=== PATIENT | female | born 1935 | race Caucasian/White ===

== ENCOUNTER 2017-01-02 11:03 | Emergency (ER) | payer MEDICARE, OTHER ==
--- NOTE | ~2017-01-02 | ER ---
PATIENT'S NAME: JOHN VILLALPANDO [facility] AGE: 81 Y [address] ROOM: [place] [address] LOCATION: [facility] ADMIT DATE: 01/02/2017 ER/Outpatient Report DISCHARGE DATE: 01/02/2017 FAMILY PHYSICIAN: Rowdy Petty PA-C ATTENDING PHYSICIAN: Tonio Brizuela Time of Arrival: Time of Evaluation: Admission date and time documented in the medical record. I saw the patient at 1130 hours. CHIEF COMPLAINT: Generalized weakness, increasing hip pain. HISTORY OF PRESENT ILLNESS: This patient is an 81-year-old female, who is brought to the emergency room by private vehicle by family for evaluation. She has had increasing weakness over the past 36 to 48 hours. Has an increased bilateral hip pain with ambulation. Has been taking tramadol for pain. She has taken about 1 or at the max 2 a day. Recently, had a urinary tract infection. She was placed on Levaquin, note might have interfered with her Coumadin and her INR went up to a 9. She started to have hemorrhaging from her bladder. Her Coumadin was stopped, and last prothrombin time checked was 2 days ago at 5.2. 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 She is undergoing chemotherapy weekly on Tuesdays. She had a hemoglobin 2 days ago of 9.7. She states that her urine has cleared as of this morning. Prior to that, it was bloodied. Denies any chest pain, shortness of breath. Does not have any abdominal pain, nausea, vomiting, or diarrhea. No urinary symptomatology. Little lightheaded, dizzy at times, but no syncope or near syncope. No fall or trauma. No recent colds, coughs, flus, fever, chills, or sweats other than the urinary tract infection. No headache, eyes, ears, nose, throat, neck, or spine pain. No history of neurological changes, psychiatric issues, or endocrine problems. HOME MEDICATIONS: See attached medication list. ALLERGIES: SULFA. SOCIAL HISTORY: Nonsmoker and nondrinker. SIGNIFICANT PAST MEDICAL HISTORY: 1. Anemia of chronic disease. 2. Hypertension. PATIENT'S NAME: JOHN VILLALPANDO [facility] AGE: 81 Y [address] ROOM: [place], [place] [address] LOCATION: [facility] ADMIT DATE: 01/02/2017 ER/Outpatient Report DISCHARGE DATE: 01/02/2017 FAMILY PHYSICIAN: Rowdy Petty PA-C ATTENDING PHYSICIAN: Tonio Brizuela 3. Peritoneal carcinomatosis. 4. Ovarian cancer. 5. Pulmonary embolism. 6. Long-term anticoagulation with Coumadin. 7. Malignant pleural effusion. 8. Malignant ascites. PAST SURGICAL HISTORY: Operations: 1. Abdominal paracentesis. 2. Blood transfusions. REVIEW OF SYSTEMS: All systems reviewed by me are negative with the exception of those discussed in the History of the Present Illness. PHYSICAL EXAMINATION: VITAL SIGNS: Temperature 98.3, tympanic; pulse 100; respirations 22; blood pressure 118/58; and O2 saturation on room air is 95%. HEENT: Head; normocephalic. Eyes; extraocular muscles intact. PERRL. Ears, Nose, Throat: Clear. Mucous membranes a little dry. NECK: No nuchal rigidity. No thyromegaly or cervical lymphadenopathy. No tenderness. SPINE: Negative. LUNGS: Clear. No rales, rhonchi, or wheezes. HEART: Regular. Pulses are palpable. ABDOMEN: Soft, nontender. Active bowel tones. No organomegaly or abnormal mass palpable. No CVA tenderness. EXTREMITIES: Has some peripheral edema, pitting. No cyanosis. No deformity. NEUROLOGIC: Neurovascularly intact. SKIN: Clear. No skin eruptions or rash. LABORATORY DATA: Urine showed 0 to 2 whites, full field reds, negative bacteria, and negative epithelial cells. Negative nitrites on dipstick. White count was 3900, 80 segs, 7 bands, 10 lymphs, 2 monos, and 1 eosinophil. Hemoglobin is 8.0 with a hematocrit of 24.8, and platelet count was 360,000. PTT was 44, prothrombin time was 16.5, with an INR of 1.56. CRP was 9.8, proBNP was 151. CMS was normal except for a low calcium of 8. Elevated BUN of 27. CPK was 37. Point of care cardiac enzymes were normal. Lactate was 0.9. Procalcitonin was 0.15. Clot tube drawn. EMERGENCY DEPARTMENT COURSE: I did give the patient 1 L normal saline IV in the emergency room. PATIENT'S NAME: JOHN VILLALPANDO [facility] AGE: 81 Y [address] ROOM: [place] [address] LOCATION: [facility] ADMIT DATE: 01/02/2017 ER/Outpatient Report DISCHARGE DATE: 01/02/2017 FAMILY PHYSICIAN: Rowdy Petty PA-C ATTENDING PHYSICIAN: Tonio Brizuela IMPRESSION: 1. Anemia of chronic disease with a hemoglobin of 8.0. 2. Hematuria secondary to a recent elevation of her prothrombin time. She is on long-term coagulation with Coumadin. Has been off Coumadin for the past 4 days. The patient was being treated for urinary tract infection with Levaquin and probably increased her prothrombin time with Coumadin therapy. 3. History of ovarian cancer with peritoneal carcinomatosis. She has a history of malignant ascites, malignant pleural effusions. Undergoing chemotherapy once a week. 4. History of hypertension. 5. History of pulmonary embolism for which she was on anticoagulation. PLAN: I did give the patient 1 L normal saline fluids here in the emergency department. Dismissed home. Observation. Activity as tolerated. Continue present home medications and care. Follow up with Dr. Aly on Wednesday for chemotherapy. The patient needs to have a recheck of her prothrombin time and her hemoglobin and hematocrit. She will probably need to be restarted on Coumadin at that time. She will get her chemotherapy at that time. I did talk to the daughter at length and she is possibly going to call Dr. Aly on Wednesday to see if she needs to have her rechecked earlier, otherwise, just to follow up on Wednesday. MD ZAY JIMENES/modl /[id number] d: 01/02/171922 t: 01/03/17609, OUTPATIENT REPORT
[~2017-01-02 11:03] MED LIST: FEOSOL325 MG PO; LOSARTAN-HCTZ1 EACH PO; LOVENOX 12120 MG/0.8 SUB-Q; PRILOSEC20 MG PO; REFRESH PLUS1 EACH OPHTH; TYLENOL EXTRA500 MG PO; XARELTO20 MG PO; ZOFRAN4 MG PO; ZOLOFT50 MG PO
[2017-01-02 12:23] LABS: HEMATOCRIT 24.8 % (30.0-46.0); MCH 32.1 pg (27.0-34.0); MCHC 32.3 gm/dL (32.0-36.5); MCV 99.6 fl (83.0-98.0); MPV 9.6 fl (9.4-12.4); PLATELET COUNT 360 K/uL (150-450); RBC 2.49 M/uL (3.00-5.00); RDW-CV 17.8 % (11.9-14.6); WBC 3.9 K/uL (4.0-11.0)
[2017-01-02 12:36] LABS: INR - (THERAPEUTIC) 1.56 (0.92-1.07); PROTIME 16.5 SECONDS (9.8-11.4); PTT 44 SECONDS (25-32)
[2017-01-02 12:45] LABS: ALBUMIN 2.5 gm/dL (3.5-5.0); ALK PHOS 100 IU/L (33-138); ALT 20 IU/L (12-78); ANION GAP 11.1 (10.0-19.0); AST 25 IU/L (10-40); BLOOD UREA NITROGEN 27 mg/dL (6-24); CHLORIDE 107 mMol/L (96-110); CO2 25 mMol/L (22-32); CPK 37 IU/L (21-215); CREATININE 0.9 mg/dL (0.5-1.1); ESTIMATED GFR (MDRD EQUATION) 60; POTASSIUM 4.1 mMol/L (3.7-5.1); SODIUM 139 mMol/L (135-145); TOTAL BILIRUBIN 0.8 mg/dL (0.0-1.5); TOTAL PROTEIN 6.4 g/dL (6.0-8.4)
[2017-01-02 12:51] LABS: ABSOLUTE NEUTROPHIL CT (ANC) 3.4 K/uL (1.8-7.8); BANDED NEUTROPHIL # 0.3 K/uL (0.0-0.1); BANDED NEUTROPHILS % 7 %; LYMPHOCYTE # 0.4 K/uL (0.8-4.0); LYMPHOCYTE % 10 %; MONOCYTE # 0.1 K/uL (0.0-1.0); SEGMENTED NEUTROPHIL # 3.1 K/uL (1.8-7.8); SEGMENTED NEUTROPHIL % 80 %
[2017-01-02 13:10] LABS: BILIRUBIN URINE NEGATIVE (NEGATIVE); BLOOD URINE 250 /UL (NEGATIVE); GLUCOSE URINE 50 mg/dL (NEGATIVE); KETONE URINE 5 mg/dL (NEGATIVE); LEUKOCYTES URINE 25 /UL (NEGATIVE); NITRITE URINE NEGATIVE (NEGATIVE); PROTEIN URINE 100 mg/dL (NEGATIVE); TURBIDITY URINE 1+ (CLEAR); UROBILINOGEN URINE NORMAL (NORMAL)
[2017-01-02 13:13] LABS: COLOR URINE OTHER (YELLOW)
[2017-01-02 13:16] LABS: EPITHELIAL URINE NEGATIVE #/HPF (NEGATIVE); RBC URINE FULL FIELD #/HPF (NEGATIVE); WBC URINE 0-2 #/HPF (NEGATIVE)
[2017-01-02 13:17] LABS: BACTERIA URINE NEGATIVE (NEGATIVE)
== END 2017-01-02 14:56 | disposition disaster alternative care site (69) ==
LOC: GMED 11:03
PROVIDERS: Emergency Medicine
DX: D63.8 Anemia in other chronic diseases classified elsewhere (principal); R79.1 Abnormal coagulation profile; R31.9 Hematuria, unspecified; I10 Essential (primary) hypertension; C56.9 Malignant neoplasm of unspecified ovary; I26.99 Other pulmonary embolism without acute cor pulmonale; C78.6 Secondary malignant neoplasm of retroperitoneum and peritoneum; Z79.01 Long term (current) use of anticoagulants; Z79.899 Other long term (current) drug therapy; Z88.2 Allergy status to sulfonamides
CPT/HCPCS: J7030

== ENCOUNTER → 2017-01-05 | Outpatient (CLI) | payer MEDICARE, OTHER ==
[~2017-01-05] MED LIST changes: +AYR SALINE NA14.1 GM NOSE; +COLACE100 MG; +COLACE100 MG PO; +COUMADIN **IA7.5 MG PO; +COUMADIN**IA 06/5 MG PO; +DILAUDID 4MG4 MG PO; +DRISDOL 5050000 UNIT PO; +DULCOLAX10 MG R; +DURAGESIC 25MC25 MCG TOP; +DURAGESIC 75MC75 MCG TRANS; +DURAGESIC1 EAC1 TOP; +GLYCOLAX527 GM PO; +LIDOCAINE1 EACH TRANS; +MAG119MX PO; +MILK OF MA400 MG/5 M PO; +MIRALAX PO527 GM/BOT PO; +NORCO 5-325 TA1 EACH PO; +ZOFRAN ODT8 MG SL; +ZOFRAN4 MG SL
== END | disposition disaster alternative care site (69) ==
LOC: GRAD 13:51
DX: C56.9 Malignant neoplasm of unspecified ovary (principal); C20 Malignant neoplasm of rectum; C48.2 Malignant neoplasm of peritoneum, unspecified; D64.81 Anemia due to antineoplastic chemotherapy; N30.00 Acute cystitis without hematuria; Z92.21 Personal history of antineoplastic chemotherapy; Z79.01 Long term (current) use of anticoagulants; M84.48XA Pathological fracture, other site, initial encounter for fracture; R18.8 Other ascites

== ENCOUNTER 2017-01-11 15:20 | Inpatient (IN) | payer MEDICARE, OTHER ==
[~2017-01-11] VITALS: Ht 172.7 cm; Wt 78.6 kg
--- NOTE | ~2017-01-11 | OR ---
PATIENT'S NAME: JOHN VILLALPANDO [facility] AGE: 81 Y [address] ROOM: [place] [address] [place] [facility] ADMIT DATE: 01/11/2017 OR/Procedure Report DISCHARGE DATE: FAMILY PHYSICIAN: Rowdy Petty PA-C ATTENDING PHYSICIAN: THERESE COLEY SURGEON: Freda Morales MD DRAGGER: None. DATE OF PROCEDURE: 01/19/2017 PREOPERATIVE DIAGNOSES: 1. Gross hematuria. 2. Mucosal bladder lesion. POSTOPERATIVE DIAGNOSES: 1. Gross hematuria. 2. Mucosal bladder lesion. OPERATIVE PROCEDURE: Cystoureteroscopy with bladder biopsy and fulguration. ANESTHESIA ADMINISTERED: Monitored anesthesia care. INDICATIONS FOR PROCEDURE: The patient is a pleasant 81-year-old female with history of omental carcinomatosis, who had recent difficulty with gross hematuria. On cystoscopy, she was noted to have several mucosal erythematous lesions along her posterior bladder wall. The patient was explained the risks, benefits, indications, and alternatives to above procedure and wished to proceed and consented freely. DESCRIPTION OF OPERATION: The patient was brought back to the operating room where she was placed on the OR table in the supine position. A surgical time- out was called where the patient identification, surgical site, and procedure was then verified. We also did verify that the patient received an IV cephalosporin antibiotic within an hour of beginning the procedure. The patient underwent successful administration of monitored anesthesia care. The patient was then moved and placed in a low lithotomy position where she was then prepped and draped in the usual sterile fashion. I began by advancing the rigid cystoscope easily into the patient's urinary bladder. Full pancystoscopy was performed. Her ureteral orifices were noted to be in their orthotopic location. There was no evidence of any bladder stones, diverticula, or trabeculation. She did have several mucosal lesions along her posterior bladder wall at least two, one located directly posterior at midline and one just to the left of midline. The cold cup biopsy forceps were used to sample these areas, which were sent for pathologic analysis. I then used the Bugbee electrocautery to widely fulgurate these areas along her posterior bladder wall. Each area measured approximately 2 cm in size. The patient did PATIENT'S NAME: ROBBIN [facility]AL[facility]OST. [facility] AGE: 81 Y [address] ROOM: [place] [address] LOCATION: [facility] ADMIT DATE: 01/11/2017 OR/Procedure Report DISCHARGE DATE: FAMILY PHYSICIAN: Rowdy Petty PA-C ATTENDING PHYSICIAN: THERESE COLEY tolerate the procedure well. I then emptied her bladder. Of note, there was no evidence of any bladder perforation. The patient was then taken out of the lithotomy position where she was then awoken from monitored anesthesia care, transferred to recovery bed, and transported to the recovery room in good condition. COMPLICATIONS: None. DRAINS: None. SPECIMENS: Bladder biopsies for pathologic analysis. ESTIMATED BLOOD LOSS: Minimal. FOLLOWUP PLAN: The patient will be admitted back to the Hospitalist Team, who is managing her pain from her recent sacral fracture. We will also closely monitor her output and we will defer to the primary team on restarting her anticoagulation. FREDA MORALES MD GP/modl /[id number] d: 01/19/17 2359 t: 01/27/17 0834, OPERATIVE SUMMARY
--- NOTE | ~2017-01-11 | CON ---
[facility]GE[facility] 81 Y [address] ROOM: [place] [address] LOCATION: [facility] [place] ADMIT DATE: 01/11/2017 Consultation DISCHARGE DATE: FAMILY PHYSICIAN: Rowdy Petty PA-C ATTENDING PHYSICIAN: THERESE COLEY DATE OF CONSULTATION: 01/12/2017 REFERRING PHYSICIAN: Marty Anguiano MD PALLIATIVE MEDICINE CONSULTATION LOCATION: Medical-Surgical Unit, Room 3205. REFERRING PROVIDER: Delroy Barboza APRN CHIEF COMPLAINT: Palliative Care referral to assist with pain management and goals of care conversation. HISTORY OF PRESENT ILLNESS: The patient is an 81-year-old female with a history of ovarian cancer with peritoneal carcinomatosis, currently undergoing chemotherapy with Dr. Aly. She was recently diagnosed with a sacral insufficiency fracture via MRI approximately 1 week ago. She had been having increasing pain at home. Had been started on a fentanyl patch 12.5 mcg as well as oral Dilaudid which still were not giving her adequate pain relief. Family reports that at home the patient got to the point where she was no longer ambulating and on the day of admission, she did not even get out of bed. Family was struggling with providing cares at home, thus the patient was brought in via ambulance for pain management. The patient reports the pain as severe in bilateral hips. She reports zero to minimal pain at rest and 10/10 with minimal activity. Palliative Care has been consulted to assist with pain management and goals of care conversation. PAST MEDICAL HISTORY: 1. Ovarian cancer, peritoneal carcinomatosis, and ascites. 2. History of pulmonary embolism in January of 2016. 3. Pulmonary hypertension. 4. Chronic GI blood loss. 5. Anemia of chronic disease. 6. Malignant pleural effusions. 7. Malignant ascites. 8. History of acute kidney injury. [facility]GE[facility] 81 Y [address] ROOM: [place] [address] LOCATION: [facility] [place] ADMIT DATE: 01/11/2017 Consultation DISCHARGE DATE: FAMILY PHYSICIAN: Rowdy Petty PA-C ATTENDING PHYSICIAN: THERESE COLEY PAST SURGICAL HISTORY: Previous Operations: 1. Port placement. 2. Paracentesis in the past. 3. D and C in the very distant past. MEDICATIONS: Please see current MAR. ALLERGIES: SULFA. SOCIAL HISTORY: The patient is and lives with her in [place]. They have seven children to provide good support but many live at a distance. No history of tobacco or alcohol use. FAMILY HISTORY: Mother had a heart disease. Her father had asthma, and she has brothers with coronary artery disease. REVIEW OF SYSTEMS: GENERAL: Denies any changes in weight. Reports appetite has been fair to good. No recent fever, chills, or night sweats. Positive for fatigue. HEENT: No change in vision or hearing. No headaches. No sinus congestion. No postnasal drip. RESPIRATORY: Denies shortness of breath or cough. CARDIOVASCULAR: No chest pain, pressure, or palpitations. Denies orthopnea. No peripheral edema. GASTROINTESTINAL: No nausea, vomiting, diarrhea, or constipation. No difficulties chewing or swallowing. GENITOURINARY: No dysuria, urinary frequency, or urgency. Does report that she has become incontinent of urine as she is unable to get up to the bathroom. MUSCULOSKELETAL: Reports a 0/10 pain right now. Resting in bed. Reports that her pain was a 3 to 4/10 with rolling to get onto the bed manrique and an 8/10, when she attempted to sit at the side of the bed this morning. She reports that her pain is in bilateral hips. Does radiate down to her knees at times. No recent falls. NEUROLOGICAL: Does have some chronic neuropathies from her chemotherapy. Denies dizziness, syncope, or seizures. INTEGUMENTARY: No rashes or open areas. HEMATOLOGICAL: No new bruising or bleeding. PSYCHIATRIC: Denies feeling depressed or anxious. Denies insomnia. PATIENT'S NAME: JOHN VILLALPANDO [facility] AGE: 81 Y [address] ROOM: [address] [address] LOCATION: [facility] [place] ADMIT DATE: 01/11/2017 Consultation DISCHARGE DATE: FAMILY PHYSICIAN: Rowdy Petty PA-C ATTENDING PHYSICIAN: THERESE COLEY PHYSICAL EXAMINATION: VITAL SIGNS: Blood pressure 134/75, heart rate 103, temperature 98.3, respirations 16, and O2 saturations 90% on room air. GENERAL: Reveals an alert and oriented elderly white female, who is lying in hospital bed. Does not appear to be in any acute distress. HEENT: Normocephalic and atraumatic. Does have alopecia. Pupils are equal and reactive to light. Sclerae not icteric. Conjunctivae are pink. Tongue and mucous membranes are moist and pink. Dentition is adequate. CARDIOVASCULAR: Heart tones regular rate and rhythm. I am not able to note any murmur. RESPIRATORY: Respirations are regular and nonlabored. Lung sounds are clear to auscultation bilaterally. I am not able to note any rales, rhonchi, or wheezes. GASTROINTESTINAL: Abdomen is soft, nontender. Bowel sounds are present. GENITOURINARY: Acuña catheter is intact with adequate amounts of yellow urine. MUSCULOSKELETAL: No significant joint deformities. Peripheral pulses are 1+ bilaterally. There is no clubbing, cyanosis, or edema. SKIN: Warm and dry. No unusual lesions or rashes. NEUROLOGIC: Grossly intact. Mental status is unremarkable. PSYCHIATRIC: Displays appropriate mood and affect for situation. IMPRESSION AND PLAN: 1. Bilateral hip pain secondary to sacral insufficiency fracture. At home, the patient was initially started on 12.5 mcg fentanyl patch. This was increased to 25 and then on Wednesday prior to this admission, the patient's family applied a third patch hoping this would give her better pain control. Plus she was taking 2 mg of oral Dilaudid approximately every 3 to 4 hours around the clock at home and 2 tablets of [place] as needed as well. In calculating her total narcotic use over 24-hour period at home, I did recommend increasing patch to 50 mcg as discussed with Delroy Barboza APRN with the hospitalist. We will also use IV Dilaudid for acute breakthrough pain. Since admission, the patient reports her pain has been better. She has been on bed rest. We will continue to titrate fentanyl and Dilaudid as needed as we initiate therapies. 2. Code status. The patient is a DNR/DNI. She did have a POLST form which was completed during her last hospital stay. This was placed on her chart. I had a long conversation with the patient and family in regard to pain management options as well as placement options following this hospitalization. Discussed going back home with caregivers. At this point, I believe she will need 24-hour caregivers due to the amount of support she is needing for transfers versus going to a custodial facility for a while versus going back home or facility with Hospice Services. Provided education PATIENT'S NAME: JOHN VILLALPANDO [facility] AGE: 81 Y [address] ROOM: [address] [address] LOCATION: [facility] [place] ADMIT DATE: 01/11/2017 Consultation DISCHARGE DATE: FAMILY PHYSICIAN: Rowdy Petty PA-C ATTENDING PHYSICIAN: THERESE COLEY to family on Home Health Care versus Hospice Services. Now that the patient has been hospitalized, the patient's family is thinking that a skilled stay at a [facility] will be best for now with the goal of trying to return back home. The patient reports that her chemotherapy will be put on hold. She has not decided if she wants to continue or not, but we will at least put it on hold until her pain is managed and her fracture has had time to heal. At this point, patient reports that her goal is for pain management. To eventually go back home though she understands that she most likely would benefit from a custodial facility stay first. Answered multiple family questions to their satisfaction. The patient and family denied any other fears or concerns. No spiritual needs. A total of 70 minutes were spent with this family, greater than 50% of this time was spent providing education and counseling. Thank you for allowing me to assist the patient and family. JEANA BYERS NP FOR MD JOSE ALBERTO CHIN/modl /[id number] CC: Delroy Barboza APRN, APRN d: 01/15/17 2228 t: 02/02/17 1350, CONSULTATION REPORT
--- NOTE | ~2017-01-11 | CON ---
PATIENT'S NAME: JOHN VILLALPANDO [place] AGE: 81 Y [address] ROOM: [address] [address] LOCATION: [facility] [place] ADMIT DATE: 01/11/2017 Consultation DISCHARGE DATE: FAMILY PHYSICIAN: Rowdy Petty PA-C ATTENDING PHYSICIAN: THERESE ANDRE REFERRING PHYSICIAN: Marty Anguiano MD Consult for Dr. Therese Andre, hospitalist. HISTORY OF PRESENT ILLNESS: This pleasant 81-year-old lady was admitted on 01/11/2017 with inability to walk, and was diagnosed with sacral insufficiency fracture on MRI. She is with marked severe pain if she stands and/or moves, and cannot ambulate. She has previous history of ovarian cancer with peritoneal carcinomatosis, and currently, she is on chemotherapy. Also, has history of bilateral pulmonary embolism. She denied any trauma. She is otherwise okay. No abdominal pain. Her ability to swallow is good. Bowel is slightly constipated; however, bladder is with some leaking issues, and this is with a Acuña catheter. She is feeling numbness in bilateral upper extremities especially in hands, and to some extent bilateral lower extremities too after she has been on chemotherapy. PHYSICAL EXAMINATION: GENERAL: At the present time, she is alert and oriented x3. VITAL SIGNS: Blood pressure was 140/73, temperature was 98.5, pulse was 84, and respiration rate was 18. She is 5 feet 8 inches tall and weighs 78.4 kg. NEUROLOGICAL: She can comprehend, and express without difficulty. Normocephalic. Cranial nerves II through XII are within normal limits. CHEST: Clear clinically. HEART: Regular sinus rhythm. ABDOMEN: Soft. EXTREMITIES: She can move bilateral upper and lower extremities. Muscle strength in bilateral upper extremity is about 4- to 4/5 with numbness as I mentioned in both hands post chemotherapy. Bilateral lower extremity muscle strength is about 3+ maybe to 4, and with effort, she gets markedly unable to move because of pain. Deep tendons are 1+ throughout. Babinski is equivocal. MEDICATIONS: She is on the following medications, PATIENT'S NAME: JOHN VILLALPADNO [place] AGE: 81 Y [address] ROOM: [address] [address] LOCATION: [facility] [place] ADMIT DATE: 01/11/2017 Consultation DISCHARGE DATE: FAMILY PHYSICIAN: Rowdy Petty PA-C ATTENDING PHYSICIAN: THERESE ANDRE 1. Coumadin. 2. Ventolin. 3. Epogen. 4. Colace. 5. Theragran. 6. [place] [employer] nasal spray. 7. Zoloft. 8. Zofran. 9. Dilaudid. 10. [place]. 11. Tylenol. 12. Lovenox. 13. Mouthwash. ASSESSMENT AND PLAN: We will start her on PT/OT. We will gradually increase her from active assistive to active range of motion in bilateral lower extremity. We will proceed with standard methodology of transfers and standing, and gradually improve her. OT will do activities of daily living and self-care. I will ask Dr. Feroz Anguiano, Orthopedic surgeon to see her and advise. We will take her to Rehab if she is stable and can tolerate intensive rehab down the line. At the present time, we have a full unit. Thank you for this referral. I did discuss all of the above with her. She verbalized understanding and agreement. GLENNY CRUZ MD WMS/modl /[id number] d: 01/13/177 t: 01/14/17 0720, CONSULTATION REPORT
--- NOTE | ~2017-01-11 | CON ---
PATIENT'S NAME: JOHN VILLALPANDO [facility] AGE: 81 Y [address] ROOM: [place] [address] LOCATION: [facility] [place] ADMIT DATE: 01/11/2017 Consultation DISCHARGE DATE: FAMILY PHYSICIAN: Rowdy Petty PA-C ATTENDING PHYSICIAN: THERESE COLEY DATE OF CONSULTATION: 01/13/2017 REFERRING PHYSICIAN: Marty Ramos MD TIME: 7 p.m. 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 Has been treated with chemotherapy since that time. No radiation therapy. No surgery. Has been able to stay at home, but she has been a limited household ambulator. Developed insidious sacral pain perhaps 3 weeks ago. Says no trauma and no change in activity. Was receiving pain medications. Reports Mother's Day was busy at home with much company and then on Wednesday the home physical therapist attempted to aggressively mobilize her and the combination of 2 markedly increased her pain. She was brought to the hospital for increased pain. MRI performed, which showed nondisplaced bilateral sacral ala fractures most consistent with insufficiency fractures, not known to have metastatic disease to the bony skeleton in the past. Reports that she has had no treatment for her osteoporosis. Does have peripheral neuropathy. Denies any weakness. Denies back pain. Also on admission, she was found to be markedly anemic and bleeding. She received 2 units of blood. Plan to have a procedure tomorrow. When she lies in bed, there was absolutely no pain, only pain when she stands up. ALLERGIES: SULFA. MEDICATIONS: She is on Coumadin for DVTs. See list for other medicines. PAST MEDICAL HISTORY: Metastatic carcinoma, osteoporosis, pulmonary embolism, anemia of chronic disease, and hypertension. SOCIAL HISTORY: Does not smoke. No alcohol. No drug abuse. REVIEW OF SYSTEMS: PATIENT'S NAME: JOHN VILLALPANDO [facility] AGE: 81 Y [address] ROOM: [place] [address] LOCATION: [facility] [place] ADMIT DATE: 01/11/2017 Consultation DISCHARGE DATE: FAMILY PHYSICIAN: Rowdy Petty PA-C ATTENDING PHYSICIAN: THERESE COLEY As above. FAMILY MEDICAL HISTORY: Her parents lived to their 90s, only of old age. PERSONAL SOCIAL HISTORY: She enjoys playing the piano. Has not been able to do that for years. PHYSICAL EXAMINATION: GENERAL: White female, very pale, no acute distress. HEENT: Hears and sees. NECK: Nontender. Thoracic spine nontender. Lumbar spine nontender. PELVIS: Stable to vertical and AP forces. There is tenderness over the sacrum bilaterally. Hips move fully with no pain. LUNGS: Able to take in a deep breath. HEART: Pulse rate is regular. ABDOMEN: Soft. Nontender. NEUROLOGIC: Has stocking-glove neuropathy with some hyperpathia bilaterally. Motor strength 5/5 throughout. Normal tone. No calf pain. INTEGUMENT: Intact. IMAGING: MRI showed bilateral sacral ala fractures, some marrow changes, but not clearly metastatic. ASSESSMENT AND PLAN: Long talk with the patient and the family. Certainly osteoporotic with pathologic fractures, chronic disease with metastatic cancer and chemotherapy. Surgical interventions would be a last resort and certainly not indicated at this time. Would recommend bedrest until comfortable, then slowly mobilize, nonweightbearing to a chair, and then slowly begin weightbearing as tolerates. I will recheck her in a week. Certainly, she has some underlying osteoporosis as well. May benefit from some medical treatment. When the patient is mobilized, needs to avoid falls to prevent other fractures. Also, with her urologic procedure, needs to be gentle with her pelvis and not further exacerbate her symptoms. MARTY RAMOS MD DPM/modl PATIENT'S NAME: JOHN VILLALPANDO [facility] AGE: 81 Y [address] ROOM: [address] [address] LOCATION: [facility] [place] ADMIT DATE: 01/11/2017 Consultation DISCHARGE DATE: FAMILY PHYSICIAN: Rowdy Petty PA-C ATTENDING PHYSICIAN: THERESE COLEY /[id number] d: 01/14/17 0302 t: 01/14/17 1829, CONSULTATION REPORT
--- NOTE | ~2017-01-11 | DS ---
PATIENT'S NAME: JOHN VILLALPANDO [facility] AGE: 81 Y [address] ROOM: [id number] [place], [place] [address] LOCATION: [facility] [place] ADMIT DATE: 01/11/2017 Discharge Summary DISCHARGE DATE: 01/21/2017 FAMILY PHYSICIAN: Rowdy Petty PA-C ATTENDING PHYSICIAN: Valeria Andre PRINCIPAL DIAGNOSES: 1. Sacral insufficiency fracture. 2. Intractable pain. 3. Ovarian cancer with peritoneal carcinomatosis. 4. History of PE, on long-term anticoagulation. 5. Anemia of chronic disease. 6. History of urinary tract infection with urinary incontinence. 7. History of hematuria. HOSPITAL COURSE: Please reference any of the admitting data to the history and physical as dictated by Dr. Andre. Briefly, an 81-year-old female with a history of stage IV ovarian cancer, who was unable to lie with intractable lower back pain. Found to have a sacral insufficiency fracture, was admitted for pain control and further evaluation and management. Incidentally, she was also found to be subtherapeutic on her Coumadin. She was started on full-dose Lovenox 1 mg/kg twice daily. She was given increased pain control with intravenous oral and transdermal pain medicines. She was kept on bedrest. A palliative care consultation was obtained also in regard to the patient's prognosis as well as supportive cares for pain control. Over the next 24 hour, she did make some progress, but very few. Two days later, a rehab consultation was obtained and she were ordered on physical therapy and occupational therapy. Dr. Anguiano's consultation was also obtained, and he recommended a nonoperative treatment with oral analgesia and slow to mobilize from bed rest. By the next day, the patient was able to sit at edge of bed with adequate analgesia and she did make progress. Over the next 2 days, she did ambulate a little bit further, but however, took a step back with further worsening pain over the weekend. We did have to utilize IV analgesia. We increased her fentanyl patch as well as her oral Dilaudid to meet her demands and we used oral Dilaudid alternating Gunter. We also added a Lidoderm patch with fairly good relief, and by the day of discharge, the patient was moving safely enough to transition to retirement care with a plan to continue nonoperative management. Prior to admission, the patient had an episode of hematuria as an outpatient and was scheduled to undergo a cystoscopy for further evaluation and possible bladder biopsy. She also has recent history of urinary tract infection as well as urinary incontinence. In consultation with Dr. Morales, her primary urologist, she was kept on prophylactic Lovenox only in anticipation of PATIENT'S NAME: JOHN VILLALPANDO [facility] AGE: 81 Y [address] ROOM: [address] [address] LOCATION: [facility] [place] ADMIT DATE: 01/11/2017 Discharge Summary DISCHARGE DATE: 01/21/2017 FAMILY PHYSICIAN: Rowdy Petty PA-C ATTENDING PHYSICIAN: Valeria Andre A necessity of procedure. She did undergo a cystoscopy with bladder biopsy and fulguration on Saturday 01/20 without complication. She was then resumed on anticoagulation on postoperative day one without any concern or complication. She was started on Coumadin with plan to bridge with Lovenox until INR reached goal 2.0 to 3.0. Vitamin D level was also found to be low at the level of 6 and was started on high-dose replacement. As for the patient's history of stage IV ovarian cancer, peritoneal carcinomatosis, we did involve Oncology as bi consultant who helped manage this portion of the case. The patient's chemotherapy is currently on hold. We did capture CA-125 level of 325, which did show improvement. They will continue to observe her as an outpatient discharge. DVT was maintained when able with anticoagulation. The remaining of her chronic conditions were maintained with her home medicines. By day of discharge, the patient was felt stable for transition to retirement facility. CONSULTING PROVIDERS: 1. Orthopedics, Dr. Marty Anguiano. 2. Physiatry, Dr. Pérez Starr. 3. Oncology, Dr. Dow. 4. Palliative care, Caryn Sanchez APRN. LABORATORY FINDINGS: Most recent on 01/21 showed a white blood cell count of 11.2, hemoglobin of 10.8, hematocrit of 34.8, and platelet count of 424. Most recent chemistry panel on 01/20 showed a glucose 128, BUN of 9, creatinine 0.5, sodium 141, potassium 3.7, chloride 107, CO2 of 25, calcium 8.2, anion gap 12.7. GFR greater than 60. Her INR on day of discharge was 0.97 Her CRP was 6.64, procalcitonin 0.09. She did have a CA-125 level of 325. Serum protein electrophoresis showed SPETP 5.2, SPE albumin at 2.5, SPE beta low at 0.3, SPE alpha 2 at 18.0, and SPE beta 2 at 8.9, all relatively mildly elevated and was a nonspecific pattern, which could represent various chronic disease state or it could be response in inflammatory stimulus. Surgical bladder biopsy shows atypical urothelium seen in association with mucosal erosion. RADIOLOGIC REPORTS: MRI of the pelvis with and without contrast on 01/20 PATIENT'S NAME: JOHN VILLALPANDO [facility] AGE: 81 Y [address] ROOM: [place] [address] LOCATION: [facility] [place] ADMIT DATE: 01/11/2017 Discharge Summary DISCHARGE DATE: 01/21/2017 FAMILY PHYSICIAN: Rowdy Petty PA-C ATTENDING PHYSICIAN: Valeria Andre A showed an evolving sacral insufficiency fracture with no displacement and there is no new fracture. There is decreased pelvic ascites and no new abnormalities when compared to previous film. DISCHARGE MEDICATIONS: 1. Lovenox 80 mg subcutaneous twice daily until INR is greater than 2.0. 2. Colace 250 mg p.o. every day. 3. Coumadin 7.5 mg p.o. 4 times weekly on Wednesday, , Wednesday, and Wednesday. 4. Fentanyl 75 mcg transdermal every 72 hours. 5. Lidoderm patch two patches to the sites of pain, hip or buttocks transdermal everyday. 6. MiraLax 17 g p.o. everyday. 7. Zoloft 50 mg p.o. every day. This is a dose change. 8. Vitamin D 50,000 units p.o. every 7 days at 0900. Last dose on 02/22/2017. 9. Coumadin 5 mg p.o. 3 times daily on Wednesday, Wednesday, and Wednesday. 10. Gunter 5/325 mg 1 tablet p.o. every 4 hours as needed. May alternate with the Dilaudid. 11. Dulcolax 10 mg per rectum every day as needed for constipation. 12. Dilaudid 4 mg p.o. every 4 hours as needed for pain. 13. Milk of magnesia 30 mL p.o. everyday as needed for constipation. 14. Zofran ODT 8 mg sublingual every 6 hours as needed. 15. Ferrous sulfate 325 mg p.o. everyday. 16. Refresh Plus eye drops one drop to each eye everyday. 17. Magic Mouthwash 5 to 10 mL p.o. every 6 hours as needed for sore mouth. 18. Nasal saline one 1 g topically everyday. DISCHARGE INSTRUCTIONS: The patient will be discharged to [facility]. She will be under the care of Dr. Banks who she visited with during her stay to establish care. We did ask for a followup within the next 3 to 4 days or as she recommends. She will require a CBC and a CMS at that followup. She will require a PT/INR tomorrow and be faxed to her primary care doctor, Dr. Banks, to manage her Coumadin level with a goal INR 2.0 to 3.0, Lovenox to be stopped after INR is greater than or equal to 2.0. She also need to follow up with her vitamin D level in five weeks and dose adjustment made according to her level. She will also need to follow up with Dr. Veronica Aly, her oncologist, in the next 2 weeks to discuss further chemo options or treatment. She should also follow up with Orthopedics, Dr. Marty Anguiano, in the next 3- 4 weeks or as needed for her back pain. Her diet should remain as tolerated. Her weightbearing status is as tolerated PATIENT'S NAME: JOHN VILLALPANDO [facility] AGE: 81 Y [address] ROOM: [address] [address] LOCATION: [facility] [place] ADMIT DATE: 01/11/2017 Discharge Summary DISCHARGE DATE: 01/21/2017 FAMILY PHYSICIAN: Rowdy Petty PA-C ATTENDING PHYSICIAN: Valeria Andre with significant fall precautions and occupational physical therapy to continue to evaluate and treat the patient. Her code status is do not resuscitate and do not intubate. Her rehab potential was fair. Discharge potential is fair. The patient and the family are well aware of her condition and prognosis was good. The line of management discussed with them during her hospitalization. All questions were answered with statements satisfaction. Total time arranging discharge greater than 30 minutes. Thank you for allowing us to participate in the care of this patient while at [facility]. TORI BAE APRN, APRN FOR MD ROSANNA ZAVALETA/oren /[id number] CC: MD Veronica Parks MD d: t: 01/22/17 0953, DISCHARGE SUMMARY
--- NOTE | ~2017-01-11 | ER ---
PATIENT'S NAME: JOHN VILLALPANDO [facility] AGE: 81 Y [address] ROOM: [place] [address] LOCATION: [facility] [place] ADMIT DATE: 01/11/2017 ER/Outpatient Report DISCHARGE DATE: FAMILY PHYSICIAN: Rowdy Petty PA-C ATTENDING PHYSICIAN: THERESE COLEY CHIEF COMPLAINT: Back pain. HISTORY OF PRESENT ILLNESS: The patient states that she is having back pain. The ambulance was called because she could not get out of bed. She arrives by ambulance from [place]. She has a known history of pelvic and ovarian cancer and is currently receiving treatment by Dr. Aly. A few days ago, she had an MRI which revealed a sacral fracture which they have been treating with escalating doses of hydrocodone, Dilaudid, and fentanyl patches. The patient feels confused and weak as well. The family notes that there is really no difference today other than her pain and inability to walk. PAST MEDICAL HISTORY: Documented in the record and reviewed by me. SOCIAL HISTORY: Documented in the record and reviewed by me. MEDICATIONS: Documented in the record and reviewed by me. ALLERGIES: DOCUMENTED IN THE RECORD AND REVIEWED BY ME. REVIEW OF SYSTEMS: All systems were reviewed and negative except as noted in the HPI. PHYSICAL EXAMINATION: VITAL SIGNS: Blood pressure 153/73, pulse of 100, respiratory rate is 20, temperature 98.4, and SpO2 is 94% on room air. Pain is 0/10 without motion. NEUROLOGIC: The patient is awake and alert. GCS is 14. Slight confusion on location. She follows commands in all extremities. The strength in the bilateral lower extremities is 4+/5 on the right, 4/5 on the left in all muscle groups. The patient is without other significant asymmetry on exam. No other focal deficits. HEENT: Normocephalic and atraumatic. Eyes are PERRL. Oropharynx is clear. NECK: Supple. Trachea is midline. CHEST: Heart is regular rate and rhythm with no obvious murmurs. PATIENT'S NAME: JOHN VILLALPANDO [facility] AGE: 81 Y [address] ROOM: [place] [address] LOCATION: [facility] [place] ADMIT DATE: 01/11/2017 ER/Outpatient Report DISCHARGE DATE: FAMILY PHYSICIAN: Rowdy Petty PA-C ATTENDING PHYSICIAN: THERESE COLEY LUNGS: Clear to auscultation bilaterally with no rhonchi, wheezes, or rales. ABDOMEN: Benign. BACK: Benign to inspection and palpation. Tenderness over the sacrum. No tenderness over the ischial spine. EXTREMITIES: Warm and well perfused with no deformities, edema, or erythema appreciated. SKIN: There is what appears to be a fungal rash over the left gluteal crease with no evidence of cellulitis. LABORATORY DATA AND IMAGING STUDIES: Labs and X-rays: No imaging was obtained today. I did review MRI from a few days ago. The patient was given no pain medication while I was on. Labs: CBC; WBC is 9.3, hemoglobin is 10.8, and platelets of 317,000. INR is 1.24. CMS without any evidence of electrolyte abnormalities. Creatinine 0.7. GFR is greater than 60. Alkaline phosphatase elevated, but no elevation of LFTs. CRP is 6.64 and procalcitonin is 0.09. IMPRESSION: Sacral fracture with intractable back pain and inability to walk. EMERGENCY DEPARTMENT COURSE: The patient was seen and evaluated as above. Based on her current history and recent imaging, I did not obtain further images. I discussed the case with Dr. Aly. The patient is clearly failing in her current situation. She will need to be admitted for better pain control, further assessment by PT, OT, and likely placement in a long term facility versus senior care pending her progression. MD DIONY DUTTON/oren /[id number] d: 01/12/17 1255 t: 01/20/1712, OUTPATIENT REPORT
--- NOTE | ~2017-01-11 | HP ---
[facility] AGE: 81 Y [address] ROOM: [address] [address] LOCATION: [facility] [place] ADMIT DATE: 01/11/2017 History & Physical DISCHARGE DATE: FAMILY PHYSICIAN: Rowdy Petty PA-C ATTENDING PHYSICIAN: THERESE COLEY DATE OF SERVICE: CHIEF COMPLAINT: Failure to ambulate. HISTORY OF PRESENT ILLNESS: An 81-year-old very pleasant lady with past medical history of ovarian carcinoma with peritoneal carcinomatosis, currently undergoing chemotherapy with Dr. Veronica Aly and a history of bilateral pulmonary embolism was diagnosed with sacral insufficiency fracture on MRI 1 week ago presented to the emergency department when the family brought her in because of failure to ambulate for past couple of days due to severe pain. She does not have pain when she does not move, but on ambulation or minimal movement, she had excruciating pain in the lower back, which is sharp and shooting, not associated with any nausea, vomiting, any lower extremity weakness, numbness, or any urinary or bowel incontinence. On further inquiry, she denied having any headache, any trouble with the eyes, any trouble swallowing, any chest pain, any palpitations, any abdominal pain, any diarrhea, but did endorse having some constipation. REVIEW OF SYSTEMS: All other systems reviewed and were negative except what is mentioned in the HPI. ALLERGIES: THE PATIENT IS ALLERGIC TO SULFA. PAST MEDICAL HISTORY: Significant for bilateral pulmonary embolism, anemia of chronic disease, ovarian cancer with peritoneal carcinomatosis, and hypertension. SOCIAL HISTORY: Never a smoker. No alcohol or drug abuse. FAMILY HISTORY: Negative for high blood pressure, diabetes, or any sort of cancer. MEDICATIONS: See the MAR. PATIENT'S NAME: JOHN VILLALPANDO [facility] AGE: 81 Y [address] ROOM: [address] [address] LOCATION: [facility] [place] ADMIT DATE: 01/11/2017 History & Physical DISCHARGE DATE: FAMILY PHYSICIAN: Rowdy Petty PA-C ATTENDING PHYSICIAN: THERESE COLEY PHYSICAL EXAMINATION: VITAL SIGNS: 132/68, 72, afebrile, 16. GENERAL: No acute distress, alert and oriented x3. HEENT: Head: Atraumatic, normocephalic. Eyes: Nonicteric. No pallor. Oropharynx: Dry mucous membranes. CARDIOVASCULAR: S1-S2. No murmurs, gallops, or rubs. LUNGS: Clear to auscultation bilaterally. ABDOMEN: Soft, nontender, nondistended. Bowel sounds are present. EXTREMITIES: No clubbing, cyanosis, or edema. MUSCULOSKELETAL: Point tenderness in the sacral area noted. PSYCH: Normal affect, mood, and speech. LABORATORY DATA: Lab work done in the emergency department today showed sodium 140, potassium 4.1, chloride 105, bicarbonate 27, anion gap of 12.5. BUN and creatinine are 15 and 0.7 respectively. CRP was 6.67. Procalcitonin was 0.09. CBC showed white count of 9.3, hemoglobin of 10.8, and platelets of 317. INR was subtherapeutic at 1.24. ASSESSMENT: 1. Sacral insufficiency fracture. 2. Ovarian cancer with peritoneal carcinomatosis. 3. Bilateral pulmonary embolism. 4. Subtherapeutic INR secondary to stopping Coumadin. 5. Anemia of chronic disease. PLAN: We are going to admit this patient to the medical surgical at this point for observation. We are going to do therapeutic INR with Lovenox at this point. She had therapeutic higher INR secondary to levofloxacin, which she took couple of weeks ago. We will provide pain control and conservative measures at this point. We will have our Orthopedics colleagues come talk to the patient if there is any benefit of sacroplasty in this scenario. The anemia of chronic disease is stable at this point and we will continue to monitor at this point. The patient is DNR/DNI. MD CARLITOS ZAVALETA/oren PATIENT'S NAME: JOHN VILLALPANDO [facility] AGE: 81 Y [address] ROOM: [place] [address] LOCATION: [facility] [place] ADMIT DATE: 01/11/2017 History & Physical DISCHARGE DATE: FAMILY PHYSICIAN: Rowdy Petty PA-C ATTENDING PHYSICIAN: THERESE COLEY /[id number] D: T: 220 HISTORY & PHYSICAL
[~2017-01-11 15:20] MED LIST changes: -AYR SALINE NA14.1 GM NOSE; -COLACE100 MG; -COLACE100 MG PO; -COUMADIN **IA7.5 MG PO; -COUMADIN**IA 06/5 MG PO; -DILAUDID 4MG4 MG PO; -DRISDOL 5050000 UNIT PO; -DULCOLAX10 MG R; -DURAGESIC 25MC25 MCG TOP; -DURAGESIC 75MC75 MCG TRANS; -DURAGESIC1 EAC1 TOP; -GLYCOLAX527 GM PO; -LIDOCAINE1 EACH TRANS; -MAG119MX PO; -MILK OF MA400 MG/5 M PO; -MIRALAX PO527 GM/BOT PO; -NORCO 5-325 TA1 EACH PO; -ZOFRAN ODT8 MG SL; -ZOFRAN4 MG SL
[2017-01-11 15:48] LABS: BASOPHIL % 0.4 %; EOSINOPHIL # 0.1 K/uL (0.0-0.5); EOSINOPHIL % 1.4 %; HEMOGLOBIN 10.8 g/dL (10.0-15.0); IMMATURE GRANULOCYTE # 0.1 K/uL (0.0-0.3); IMMATURE GRANULOCYTE % 0.5 %; LYMPHOCYTE # 1.2 K/uL (0.8-4.0); LYMPHOCYTE % 13.3 %; MCV 97.4 fl (83.0-98.0); MONOCYTE # 1.2 K/uL (0.0-1.0); MONOCYTE % 12.3 %; MPV 9.6 fl (9.4-12.4); NEUTROPHIL # (ANC) 6.7 K/uL (1.8-7.8); NEUTROPHIL % 72.1 %; NRBC % 0 /100WBC (0-0.00); PLATELET COUNT 317 K/uL (150-450); WBC 9.3 K/uL (4.0-11.0)
[2017-01-11 15:49] LABS: HEMATOCRIT 33.8 % (30.0-46.0); MCH 31.1 pg (27.0-34.0); RBC 3.47 M/uL (3.00-5.00); RDW-CV 20.5 % (11.9-14.6)
[2017-01-11 15:58] LABS: INR - (THERAPEUTIC) 1.24 (0.92-1.07); PTT 32 SECONDS (25-32)
[2017-01-11 16:06] LABS: ALBUMIN 2.3 gm/dL (3.5-5.0); ALK PHOS 177 IU/L (33-138); ALT 22 IU/L (12-78); ANION GAP 12.1 (10.0-19.0); AST 25 IU/L (10-40); BLOOD UREA NITROGEN 15 mg/dL (6-24); CALCIUM 8.1 mg/dL (8.5-10.5); CHLORIDE 105 mMol/L (96-110); CO2 27 mMol/L (22-32); CREATININE 0.7 mg/dL (0.5-1.1); ESTIMATED GFR (MDRD EQUATION) > 60; POTASSIUM 4.1 mMol/L (3.7-5.1); SODIUM 140 mMol/L (135-145); TOTAL BILIRUBIN 0.7 mg/dL (0.0-1.5); TOTAL PROTEIN 5.8 g/dL (6.0-8.4)
[2017-01-11] MEDS ORDERED: COLACE100 MG (20:17)
[2017-01-11] MEDS ORDERED: COLACE100 MG PO (20:17)
[2017-01-11] MEDS ORDERED: NORCO 5-325 TA1 EACH PO (20:19)
[2017-01-11] MEDS ORDERED: DURAGESIC 25MC25 MCG TOP ×2 (20:21→20:22)
[2017-01-11] MEDS ORDERED: ZOFRAN4 MG SL (20:23)
[2017-01-11] MEDS ORDERED: MAG119MX PO (20:24)
[2017-01-11] MEDS ORDERED: DILAUDID 4MG4 MG PO (20:25)
[2017-01-11] MEDS ORDERED: COUMADIN**IA 06/5 MG PO (20:27)
[2017-01-11] MEDS ORDERED: COUMADIN **IA7.5 MG PO (20:27)
[2017-01-11] MEDS ORDERED: AYR SALINE NA14.1 GM NOSE (20:35)
[2017-01-11] MEDS ORDERED: DURAGESIC 75MC75 MCG TRANS (20:52)
[2017-01-11] MEDS ORDERED: DURAGESIC1 EAC1 TOP (20:53)
[2017-01-11] MEDS ORDERED: ZOFRAN ODT8 MG SL (20:56)
--- NOTE | 2017-01-11 21:39 | NUR ---
81 Y/O ADMITTED WITH BILAT HIP PAIN. PT WENT TO ER ON 01/06/17 AND WAS DIAGNOSED WIHT A SACRAL INSUFFICIENCY FRACTURE. PT HAS NOT BEEN ABLE TO WALK SINCE 01/06/17 AND THE PAIN HAS GRADUALLY GOTTEN MUCH WORSE TO THE POINT THAT PT HAS BEEN IN EXCRUCIATING UNBEARABLE PAIN. PT & A&OX3. ALLERGY - SULFA = SORES IN MOUTH. MEDICAL & SURGICAL HISTORY - D&C IN 1959, POWER PORT RT CHEST. PEROTINEAL CANCER DX MAR 2014. MOST RECENT CHEMO BEGAN 10/18/16 AND HAS BEEN WEEKLY WITH PT RECEIVEING TAXOL Q WK, THEN TAXOL & AVASTIN Q 3RD WEEK. PT LAST CHEMO WAS 12/30/15, WAS TO CONTINUE UNTIL JANUARY BUT WAS STOPPED DUE TO SEVERE HIP PAIN. PT DID RECEIVE PROCRIT TUES. December PULMONARY EMBOLISMS 03/2014 & 02/17/16 & PT HAS BEEN ON COUMADIN BUT DR LIMA HAD PT STOP APPROX 5-6 DAYS AGO . UTI @ [facility], HAS BEEN ON 3 DIFFERENT ANTIBIOTICS AND HAS HAD AN INCREASE IN URINARY INCONTINANCE OVER THE PAST YR BUT [place] SINCE [facility]. DR GAYTAN HAS PT SCHEDULED FOR A CYSTOSCOPY & BIOPSY WIHT POSSIBLE CAUTERIZATION PT HAS BEEN HAVING HEMATURIA. HX OF HEMORRHOIDS, CONSTIPATION, DIARRHEA WITH CHEMO, PARASCENTESIS 01/20/16 & 02/16/16, BLOOD IN STOOL BUT UPPER & LWR GI ALL WNL, ANURIA, DYSURIA & ARF 2016, HX SKIN CANCER YRS AGO, 7 VAGINAL DEL. DEPRESSION, ANXIETY, ANEMIA. CURRENTLY HAS SORES IN MOUTH. REPORT GIVEN TO PT PRIMARY CARE NURSE MICHELLE ANDRE
--- NOTE | 2017-01-12 03:49 | NUR ---
Significant Event: Patient alert and oriented X4. States she hasn't walked for several days because of pain. Has numbness and tingling to fingers from chemo. On ETCO2 monitoring. Fent patch to L) shoulder. Scheduled tylenol and flexeril. Regular diet. Plan to access port and place maloney per family wishes this shift. Started on Lovenox and restarted on coumadin. L) hand saline lock. DNR. Follow up: Monitor pain
[2017-01-12 04:18] LABS: BASOPHIL # 0.1 K/uL (0.0-0.2); BASOPHIL % 0.5 %; EOSINOPHIL # 0.2 K/uL (0.0-0.5); EOSINOPHIL % 2.3 %; HEMOGLOBIN 10.4 g/dL (10.0-15.0); IMMATURE GRANULOCYTE # 0.1 K/uL (0.0-0.3); IMMATURE GRANULOCYTE % 0.8 %; LYMPHOCYTE # 1.2 K/uL (0.8-4.0); LYMPHOCYTE % 12.9 %; MCHC 31.5 gm/dL (32.0-36.5); MCV 98.5 fl (83.0-98.0); MONOCYTE # 1.2 K/uL (0.0-1.0); MONOCYTE % 12.8 %; MPV 9.6 fl (9.4-12.4); NEUTROPHIL # (ANC) 6.6 K/uL (1.8-7.8); NEUTROPHIL % 70.7 %; NRBC % 0 /100WBC (0-0.00); PLATELET COUNT 313 K/uL (150-450); RBC 3.35 M/uL (3.00-5.00); RDW-CV 20.4 % (11.9-14.6); WBC 9.3 K/uL (4.0-11.0)
[2017-01-12 04:20] LABS: BLOOD UREA NITROGEN 15 mg/dL (6-24); CALCIUM 8.1 mg/dL (8.5-10.5); CHLORIDE 106 mMol/L (96-110); CO2 28 mMol/L (22-32); CREATININE 0.6 mg/dL (0.5-1.1); ESTIMATED GFR (MDRD EQUATION) > 60; SODIUM 141 mMol/L (135-145)
--- NOTE | 2017-01-12 11:59 | NUR ---
Introduced self and role of care management to patient and her family. She lives with her in [place]. She states that prior to the pain issue she was able to do all her own ADL's. Her and family did assist as needed. We did discuss discharge plans. She is aware that she will most likely need a skilled stay prior to going home. She prefers [facility] in [place] and then [facility] in [place]. I placed a call to [place] at [facility] and they do have female beds available. I had to leave a message for Nicole to [facility]. I did explain to patient and family that if they chose to do a skilled stay they could not continue chemo during that stay. They state that her chemo is on hold at this time and will not be restarted until she gets back home or decides not to continue. They deny any needs at this time. Will continue to follow.
[2017-01-12 14:45] LABS: INR - (THERAPEUTIC) 1.14 (0.92-1.07)
--- NOTE | 2017-01-12 15:44 | NUR ---
Spoke with Nicole at [facility]. Referral faxed.
--- NOTE | 2017-01-12 16:08 | NUR ---
Significant Event: Patient alert and oriented. Portacath to her R) upper chest patent with good blood return. INR was 1.14 and patient received Coumadin 7.5 mg. Patient c/o bilateral hip pain with movement and was in tears when she was sitting on the edge of the bed. Returned to bed and patient had one small, golfball sized stool per bedpan. Dilaudid 0.2 mg IV given x 2 doses with the last at 1257. Fentanyl patch increased to 50 mcg. Acuña patent and drains jose colored urine with a total of 1150 ml out for the shift. New orders to dc Flexeril, patient is on bedrest and Palliative Care Consult. Patient has a red rash like area to her posterior R) thigh. Follow up: Monitor pain. Repostion q 2hrs. Start Procrit if Hgb < 10 or Hct <30.
--- NOTE | 2017-01-13 04:30 | NUR ---
Significant Event: Patient alert and oriented X4. Bedrest. Orders to work with PT/OT. Vitals stable and on room air. Port to R) chest saline locked. Nurse draw. Reguarl diet. IV diluadid X1 around 2100. Reposition often. Pneumatics on. Fent patch to R) shoulder. Rash to buttocks, WOC consulted. 2 hard BMs this shift. Follow up: May need a stool softener.
[2017-01-13 06:01] LABS: INR - (THERAPEUTIC) 1.2 (0.92-1.07); PROTIME 12.6 SECONDS (9.8-11.4)
--- NOTE | 2017-01-13 12:11 | NUR ---
SPOKE TO SULY AT THE [facility] SHE INFORMS ME THAT SHE HAS REVIEWED THE INFO THAT WAS FAXED TO HER, THEY WILL NOT BE ABLE TO ACCEPT HER AT THIS TIME THEY ARE FULL. DR. CRUZ HERE AND EVALUTAED HER HE FEELS THAT SHE WOULD BE APPROIATE BUT THE REHAB UNIT IS FULL AT THIS TIME. I SPOKE TO JOHN AND UPDATED HER THAT THE [facility] IF FULL. AND SHE WOULD LIKE FOR ME TO MAKE REFERRAL TO [facility]. I SPOKE TO SULY([phone]) SHE REPORTS THAT THEY HAVE A FEMALE BED, SHE WOULD LIKE FOR ME TO FAX INFO TO HER ([phone]). SHE WILL REVIEW IT AND GET BACK TO ME.
--- NOTE | 2017-01-13 15:38 | NUR ---
MEET WITH PATIENT HER SPOUSE AND CHILDREN NAJMA AND DAVION AT THE BEDSIDE. UPDATED THEM THAT WE CONT TO WORK ON GETTING SNF. AND THAT [facility] DOES NOT HAVE ANY BEDS. HAVE MADE REFERRAL TO [facility] AND THEY ARE OK WITH THIS. WILL CONT TO FOLLOW NEEDED.
--- NOTE | 2017-01-13 17:28 | NUR ---
Significant Event: DNR. PT AO. VSS ON RA, AFEBRILE. BEDREST, CAN USE BSC. PT/OT WORKING WITH. PORT TO R CHEST, SALINE LOCKED WITH GOOD BLOOD RETURN. DR RAMOS (ORTHO) CONSULTED TODAY. HAS NOT BEEN AROUND YET. PALIATIVE ON CASE. MILK OF MAG AND PRUNE JUICE GAVE WITH NO RESULTS, SUPPOSITORY GAVE AT 1720 PER PT REQUEST. COUMADIN IS ON HOLD FOR POSSIBLE CYSTOSCOPY- DR GAYTAN HAS NOT BEEN AROUND YET. PT HAS DUTTON. LOTS OF FAMILY AT THE BEDSIDE THIS SHIFT. PT HAS LOTS OF PAIN WITH MOVEMENT. FENTANYL PATCH IN PLACE, PRN IV DILUAID X2, LAST AT 1615. PRN PO DILAUDID AT 1615 ALSO. HAS SCHEDULED TYLENOL. PAIN IS TOLERABLE AT THIS TIME. Follow up: BM, PAIN CONTROL, POSSIBLE CYSTO?
--- NOTE | 2017-01-13 18:22 | NUR ---
I HAVE REVIEWED AND AGREE WITH CHARTING COMPLETED BY [facility] STUDENT OLEG HODGE RN
--- NOTE | 2017-01-14 04:29 | NUR ---
Patient is alert and oriented can be forgetful at times, is currently on bedrest, has port in the right chest is a nurse draw, taking diluadid for pain control, has has extra large loose BM this shift, did have a pulse of 126 notified ERICKA no new order was not symptomatic, has rested well
[2017-01-14 05:36] LABS: INR - (THERAPEUTIC) 1.32 (0.92-1.07); PROTIME 13.9 SECONDS (9.8-11.4)
--- NOTE | 2017-01-14 11:00 | NUR ---
SPOKE TO YAIMA AT [facility] TO SEE IF SHE HAS REVIEWED THE INFO THAT I FAXED TO HER YESTERDAY ON JOHN. YAIMA INFORMS ME THAT SHE HAS REVIEWED IT AND THAT THE D.O.N NEEDS TO REVIEW IT AND SHE IS NOT SURE TO WHETHER OR NOT SHE HAS REVIEWED IT. SHE WILL GET BACK TO ME AFTER SHE SPEAKS TO THE D.O.N
--- NOTE | 2017-01-14 15:30 | NUR ---
Author Note Category Date Time by DANNY RODRIGUEZ Admission Note Occurred 01/14/171531 [facility] Abnormal? N Confidential? N Recorded 01/14/171535 [facility] SPOKE TO RUTHY MARQUEZ AT [facility] SHE REPORTS THAT STEPHANIE Chand WILL BE HERE LATER TODAY TO EAVALUATE JOHN. I SPOKE TO PATIENT HER SPOUSE AND DAUGHTER JEANETTE AT THE BEDSIDE AND UPDATED THEM OF THIS. THEY ARE HAPPY THAT STEPHANIE IS COMING. JEANETTE AND PATIENT WOULD LIKE OT HAVE JUAN'S POA FOR HEALTH CARE NORTERIZED,I NOTIFIED NURSING ADMINISTRATION AND [facility] WILL BE HERE TO NORTERIZE THE PAPER WORK. PATIENT HAS A PHOTO IDEA WITH HER AND THE POA FORMS DO NOT INVOLVE FINANCES.
--- NOTE | 2017-01-14 15:32 | NUR ---
SPOKE TO RUTHY MARQUEZ AT [facility] SHE REPORTS THAT STEPHANIE Chand WILL BE HERE LATER TODAY TO EAVALUATE JOHN. I SPOKE TO PATIENT HER SPOUSE AND DAUGHTER JEANETTE AT THE BEDSIDE AND UPDATED THEM OF THIS. THEY ARE HAPPY THAT STEPHANIE IS COMING. JEANETTE AND PATIENT WOULD LIKE OT HAVE JUAN'S POA FOR HEALTH CARE NORTERIZED,I NOTIFIED NURSING ADMINISTRATION AND [facility] WILL BE HERE TO NORTERIZE THE PAPER WORK. PATIENT HAS A PHOTO IDEA WITH HER AND THE POA FORMS DO NOT INVOLVE FINANCES.
--- NOTE | 2017-01-14 17:37 | NUR ---
Confused and forgetful, but cooperative. Up today w/PT sitting and standing at bedside for 10minutes total. PRN PO Dilaudid given x1 3hrs prior. Fentanyl patch on. Tolerating regular diet. Gave PO Zofran x1 for c/o nausea. DNR. Was assessed for NH today. Port to [facility] w/GBR. Rash to bottom.
--- NOTE | 2017-01-15 04:39 | NUR ---
Significant Event: Patient is alert and oriented x 3. Forgetful. VSS on room air. Dangled at the bedside x 1 this shift. Incontinent of stool x 1 this shift. Acuña intact, 1150 mls out. Right chest port, saline locked. Good blood return. Dilaudid given for pain last at 0422. Patient is pleasant and cooperative with cares. Follow up:
[2017-01-15 04:54] LABS: INR - (THERAPEUTIC) 1.25 (0.92-1.07); PROTIME 13.2 SECONDS (9.8-11.4)
--- NOTE | 2017-01-15 09:30 | NUR ---
SPOKE TO HOLLIS AT [facility] SHE INFORMS ME THAT THEY WILL ACCEPT PATIENT AND THEY WILL BE HERE ON Wednesday01/18/17 AT 1000 TO GET HER. I SPOKE TO PATIENT'S DAUGHTER JEANETTE AND SHE HAD MEET WITH STEPHANIE THE D.O.N OF [facility] AND THEY HAD TOLD HER THAT JHON WILL NEED TO HAVE A PCP, JEANETTE WOULD LIKE FOR DR. LAWSON TO BE THE PCP. WILL CONT TO FOLLOW NEEDED.
--- NOTE | 2017-01-15 15:29 | NUR ---
Very forgetful. Cooperative with cares. Tolerating regular diet well. Up to chair today. Gave PO Dilaudid and [place] 2 tabs for anticipatory pain. Port to [facility] w/GBR, s/l'd. Pulled amara this afternoon @1445. VSS, afebrile, on . Denies N/V. Incontinent BM x1. Going to [facility] on Wednesday.
--- NOTE | 2017-01-16 04:50 | NUR ---
Significant Event: PATIENT IS ALERT AND ORIENTATED X3 CAN BE FORGETFUL. PIVIOT TRANSFER TO BEDSIDE COMMODE WITH 2 ASSIST GB. VSS PORT TO U R CHEST. PAIN HAS BEEN WELL CONTROLED WITH PO DILAUDID X1 THIS SHIFT GIVEN AT 0244. CAN BE INCONTINENT. LIKES TO SIT IN CHAIR. Follow up:
--- NOTE | 2017-01-16 14:50 | NUR ---
Attempted to see pt today. pt was just finishing on commode. Helped pt transfer back to [place] and pt was SBA for supine to sit and sit to supine to other side to sit and eat lunch. Asked if pt wanted to get into chair but refused at this time. Will attempt to see pt tomorrow. Chani Darby, PT
--- NOTE | 2017-01-16 15:09 | NUR ---
A-SCREENED D/T LOS 2013 DX WITH PERITONEAL CA; RECENT CHEMO STARTED 09/2016. PT RECEIVED WEEKLY UNTIL IS WAS RECENTLY STOPPED D/T SEVERE HIP PAIN. C/O NAUSEA AT TIMES; ZOFRAN GIVEN HT: 68 IN. WT: 78.6 KG. BMI: 26.3 LABS REVIEWED: ALB 2.3, CRP 6.64 MEDS: ZOFRAN, NORCO, DILAUDID, OSCAL+D, MIRALAX, PRN BOWEL MEDS, DURAGESIC, COLACE, ZOLOFT DIET RX: REGULAR. PO INTAKE 50-1005; AVG IS 68%. EST NUTR NEEDS: [id number] KCALS (25-30 KCALS/KG) 79-94 GM PROTEIN (1.0-1.2 GM/KG) 1 ML FLUID/KCAL D-AT NUTRITION RISK W/INCREASED NUTRIENT NEEDS R/T CATABOLIC DX PROCESS AEB DX, NAUSEA. I-OFFER ENSURE ENLIVE QD AT [facility] TO PROVIDE ADDITIONAL NUTRIENTS M/E-GOAL: PO INTAKE >/=75% BY DISCHARGE 1)F/U PO INTAKE, SUPPLEMENT, AND POD IN 3-5 DAYS 2)ASSIST NEEDED
--- NOTE | 2017-01-16 17:26 | NUR ---
Forgetful. Cooperative with cares. Tolerating regular diet well; appetite improved. Voiding well; small BM. Port to [place] s/l'd w/GBR. Up w/1 assist, GB, walker. Up to chair and BSC. Gave Dilaudid PO x2 today. Fentanyl patch. To [facility] Wednesday @1000. Has cystoscopy outpatient on Wednesday.
--- NOTE | 2017-01-17 03:54 | NUR ---
Significant Event: ALERT AND ORIENTATED X 3 FORGETFUL AT TIMES. 2 PERSON GB WALKER PIVIOT TRANSFER TO COMMODE. WALKED TO BATHROOM THIS SHIFT WITH WALKER. PULSE IS TACHY 100-106 OTHER VS WNL. PORT TO RIGHT CHEST. FENTANYL PATCH FOR PAIN AND NORCO. WILL BE MOVING TO [place] ON AT 10:00. SCHEDULED TO RETURN FOR CYSTOSCOPY AN OUT PATIENT ON WEDNESDAY. HAD A LARGE BM. COOPERATIVE WITH CARES AND PLEASANT. SLEPT WELL THIS SHIFT. Follow up:
--- NOTE | 2017-01-17 15:23 | NUR ---
Significant Event: Pt c/o increased pain this shift. Britton given x1 and dilaudid IV x2 so far along with routine tylenol. Could not get out of bed this am d/t pain control. Up with 2 assist to chair this afternoon. Port to right chest. tachycardiac in low 100's but asymptomatic. Follow up:
--- NOTE | 2017-01-17 15:29 | NUR ---
Significant Event: Pt denies pain. Confused throughout shift and hallucinates. More calm this afternoon. Up in recliner with lift this am. Poor appetite today, fair oral fluid intake. No void this shift, bladder scanned at 1430 for 223ml, MD aware said to watch as she doesn't have much fluid intake. K+ level was 3.5, was supposed to give 80 meq oral (pill) potassium but could only swallow 2 so changed the order to give 60 meq liquid dose to equal 80meq total. Mag level was 1.1, gave 2 grams IV mag today. Continues on 2 liters O2. Follow up:
--- NOTE | 2017-01-18 04:43 | NUR ---
Significant Event: PATIENT IS ALERT AND ORIENTATED X3 BUT FORGETFUL AT TIMES. AMBULATES WITH 1-2 ASSIST GB WALKER TO COMMODE OR BATHROOM. SHE EXPERIENCES WAVES OF EXTREME PAIN WHEN AMBULATING. PATIENT REQUESTS TO HAVE DILAUIDID BEFORE AMBULATING TO AND FROM BED. SHE EXPERIENCES WAVES OF EXTREME PAIN WHEN GETTING UP. INCONTINENT AT TIMES. PORT TO R CHEST. TACHY BUT ASYMPOTOMAIIC. VSS WNL ON RA. PLAN IS TO GO TO [facility] TODAY AT 10:00. AMBULATES WITH Follow up:
--- NOTE | 2017-01-18 09:15 | NUR ---
RECEIVED CALL FROM [facility] APRN HE INFORMS ME THAT THEY HAVE DECIDED TO HOLD ON JOHN'S TRANSFERE TODAY SHE IS HAVING PAIN SO THEY ARE MAKING MEDICATION ADJUSTMENTS. NOTIFED THER [facility] INFORMED THE STAFF NURSE. NOITIFIED PATIENT'S DAUGHTER JEANETTE.
--- NOTE | 2017-01-18 19:42 | NUR ---
Forgetful. Up w/1 assist, GB, walker. Significant pain when changing positions, but resolves quickly. Up to chair today. Tolerating regular diet well. NPO @[place] for cysto in a.m. w/Dr Morales (had previously been scheduled outpatient); time not established yet. Gave PO Dilaudid x3 today. Please offer Q4hrs even when sleeping. [place] port w/GBR.
--- NOTE | 2017-01-19 04:04 | NUR ---
Pt. alert and oriented -forgetful. RA. VSS - tachycardic. 1 assist to commode at bedside. R) Port with no blood return. Cysto in PM - if pt. is not d/c'd after procedure, port needs to be deaccessed and reaccessed again. PRN PO dilaudid every 4 hours per patient's request. Been NPO since midnight. Preop checklist started.
--- NOTE | 2017-01-19 16:24 | NUR ---
Significant event: Patient is alert, more forgetful today. VSS. On room air. Port to right chest, dressing changed this afternoon. More pain in left hip area, 2 doses of IV dilaudid given for breakthrough pain. Has been NPO since midnight, with just sips of water for medications. Uses bedpan for urination, is occasionally incontinent. Tolerating regular day. Went down for surgery at 1610. Coopeartive with cares.
[2017-01-19 17:28] LABS: HEMATOCRIT 35.2 % (30.0-46.0); HEMOGLOBIN 10.9 g/dL (10.0-15.0)
--- NOTE | 2017-01-20 04:27 | NUR ---
Pt. alert and anxious over pain. VSS. RA. Back from surgery at 1930. Postop vitals done. 2mg Dilaudid every 4 hours. Pain uncontrolled at beginning of shift. Port to R) chest - drsg and needle changed yesterday. Fluids at 75ml/hour. Incontinent but will attempt several times to go to bathroom but pain is too bad to get up and walk. Needs redirected and reminded several times for tasks such as not getting out of bed to use the bathroom. Cooperative [facility] cares - can become edgy at times.
--- NOTE | 2017-01-20 10:00 | NUR ---
SPOKE TO SULY AT [facility] TO SEE IF THEY HAVE ANY FEMALE BEDS AT THIS WAS PATIENT'S FIRST CHOICE. SULY INFORMS ME THAT THEY ARE STILL FULL AT THIS TIME.
[2017-01-20 11:18] LABS: BASOPHIL # 0.1 K/uL (0.0-0.2); BASOPHIL % 0.7 %; EOSINOPHIL # 0.3 K/uL (0.0-0.5); EOSINOPHIL % 3.2 %; HEMATOCRIT 35.6 % (30.0-46.0); IMMATURE GRANULOCYTE # 0.1 K/uL (0.0-0.3); IMMATURE GRANULOCYTE % 0.8 %; LYMPHOCYTE # 1.1 K/uL (0.8-4.0); LYMPHOCYTE % 13.1 %; MCH 30.6 pg (27.0-34.0); MCHC 30.9 gm/dL (32.0-36.5); MCV 98.9 fl (83.0-98.0); MONOCYTE # 0.8 K/uL (0.0-1.0); MONOCYTE % 9.2 %; MPV 9.3 fl (9.4-12.4); NRBC % 0 /100WBC (0-0.00); RDW-CV 19.4 % (11.9-14.6); WBC 8.2 K/uL (4.0-11.0)
[2017-01-20 11:20] LABS: ANION GAP 12.7 (10.0-19.0); BLOOD UREA NITROGEN 9 mg/dL (6-24); CALCIUM 8.2 mg/dL (8.5-10.5); CHLORIDE 107 mMol/L (96-110); CO2 25 mMol/L (22-32); CREATININE 0.5 mg/dL (0.5-1.1); ESTIMATED GFR (MDRD EQUATION) > 60; POTASSIUM 3.7 mMol/L (3.7-5.1); SODIUM 141 mMol/L (135-145)
[2017-01-20 11:22] LABS: PLATELET COUNT 423 K/uL (150-450)
--- NOTE | 2017-01-20 11:22 | NUR ---
SPOKE TO HOLLIS AT [facility] AND UPDATED HER THAT PATIENT NOT READY FOR DISCHARGE TODAY THAT THEY ARE ADJUSTING HER PAIN MEDS. HOLLIS REPORTS THAT THEY WILL ACCEPT PATIENT ONCE SHE IS READY FOR DISCHARGE.
--- NOTE | 2017-01-20 14:42 | NUR ---
Significant Event: Patient given dilaudid last at 1142--is due at 1500 and will try to give then. Rates pain low when laying flat but only rates 1 number higher when she is moving. Dilaudid and tylenol doses increased per orders. Lidoderm patch to be applied after patient back from MRI. Patient placed in brief as she has some incontinence issues and was worried about going to MRI without a brief. Aloe vesta applied to bottom. Follow up: Continue to monitor.
--- NOTE | 2017-01-20 15:17 | NUR ---
A - NUTRITION FOLLOW-UP. S/P CYSTO 01/19, PATIENT REPORTED STILL NOT FEELING HUNGRY SINCE SURGERY. PAIN ISSUE. WEIGHT STABLE. LABS: GLU 124. NEW MEDS: ZOLOFT, DULAUDID. DIET: REGULAR W/ ENSURE ENLIVE ONCE DAILY. LIKES ENSURE BUT HAS NOT BEEN DRINKING DAILY. DOES DRINK ENSURE AT HOME. INTAKE 49% X9 MEALS. DID NOT EAT LUNCH TODAY. TOOK BREAKFAST ORDER FOR PT. DISCUSSED LIKES AND DISLIKES. ENCOURAGEMENT GIVEN. EST NEEDS: [id number] KCAL, 79-94 GRAMS PROTEIN, FLUID NEEDS: 1ML/KCAL D - INADEQUATE ORAL INTAKE RELATED TO DECREASED APPETITE EVIDENCED BY PO 49% X9 MEALS. I - ENSURE ENLIVE 1X/DAY; ADDING MAGIC CUP ONCE DAILY. M/E - GOAL: PT WILL BE ABLE TO TOLERATE >50% OF MEALS AND AT LEAST ONE ORAL SUPPLEMENT PER DAY IN 4-6 DAYS.
--- NOTE | 2017-01-21 04:34 | NUR ---
Significant Event:Pt alert and Oriented x3. Cooperative with cares. pt was able to move side to side by herself at times. [place] given x1. and diladid given x1. incontenent at times. 2 assist. slept most of the night. VSS. RA. port to right chest SL GBR. aloe vesta applied to bottom. alternate pain medication as needed Follow up:
[2017-01-21 05:39] LABS: BASOPHIL # 0.1 K/uL (0.0-0.2); BASOPHIL % 0.5 %; EOSINOPHIL # 0.3 K/uL (0.0-0.5); EOSINOPHIL % 2.8 %; HEMATOCRIT 34.8 % (30.0-46.0); HEMOGLOBIN 10.8 g/dL (10.0-15.0); IMMATURE GRANULOCYTE # 0.1 K/uL (0.0-0.3); IMMATURE GRANULOCYTE % 0.4 %; LYMPHOCYTE # 1.6 K/uL (0.8-4.0); LYMPHOCYTE % 14.2 %; MCH 30.8 pg (27.0-34.0); MCV 99.1 fl (83.0-98.0); MONOCYTE % 8.9 %; MPV 9.3 fl (9.4-12.4); NEUTROPHIL # (ANC) 8.2 K/uL (1.8-7.8); NEUTROPHIL % 73.2 %; NRBC % 0 /100WBC (0-0.00); PLATELET COUNT 424 K/uL (150-450); RBC 3.51 M/uL (3.00-5.00); RDW-CV 19.2 % (11.9-14.6); WBC 11.2 K/uL (4.0-11.0)
[2017-01-21 05:43] LABS: PROTIME 10.2 SECONDS (9.8-11.4)
[2017-01-21 05:57] LABS: INR - (THERAPEUTIC) 0.97 (0.92-1.07)
--- NOTE | 2017-01-21 10:00 | NUR ---
RECEIVED CALL FROM DR. LAWSON'S NURSE MAIKEL SHE REPORTS THAT DR. RITTER WOULD LIKE TO HAVE JOHN COME TO SEE HER PRIOR TO GOING TO THE SNF. I EXPLAINED TO MAIKEL THAT PATIENT IS GOING VIA ABMULANCE AND THAT IT WILL NOT BE POSSIBLE TO BRING HER THERE. AND I ASKED IF DR. LAWSON CAN COME TO SEE PATIENT. MAIKEL SPOKE TO DR. LAWSON. MAIKEL INFORMS ME THAT DR. LAWSON IS NOT ABLE TO DO THIS. AND SUGGESTED THAT THE SNF BRING JOHN THERE IN A WEEK. I SPOKE TO YAIMA ABOUT THIS SHE VOICES CONCERNS TO WHETHER OR NOT JOHN WILL BE ABLE TO TOLERATE THE RIDE TO NEY IN A VAN THE REASON BRUNILDA IS GOING VIA AMBULANCE TODAY IS BECAUSE SHE CAN NOT TOLERATE SITTING STRAIGHT UP IN A WC. SPOKE TO MAIKEL REGARDING THIS CONCERN AND SHE INFORMS ME THAT DR. LAWSON WOULD LIKE FOR US TO BRING JOHN TO THE CLINIC SHE RATHER NOT COME TO SEE PATIENT IN THE ROOM DUE TO HER SCHEDULE AND THE FACT THAT PATIENT WILL BE LEAVING HERE AT 1230. I MEET WITH PATIENT AND HER SON AT THE BEDSIDE AND EXPLAINED TO THEM THAT DR. LAWSON WOULD LIKE TO SEE JOHN IN THE CLINIC TODAY AND THAT I CAN HELP GET HER THERE BEFORE SHE LEAVES AT 1230. PATIENT AND SON ARE IN AGREEMENT TO THIS. PATIENT IS SETTING UP IN A WHEELED RECLINER I TRANSFERED HER TO THE CLINIC IN THE RECLINER, AND STAYED WITH PATIENT WHILE DR. LAWSON EXAMINED PATIENT. WHILE THERE PATIENT WAS CRING DUE TO PAIN THE HEAD OF THE RECLINER HAD TO BE RISEN TO FIT IT THE ELEVATOR AND SITTING UP RIGHT CASED JOHN A GREAT DEAL OF PAIN. ONCE I RECLINED HER HEAD BACK THIS HELPED TO DECREASE THE PAIN BUT SHE CONT TO C/O PAIN AND WAS CRYING. ONCE DR. LAWSON HAD COMPLETED HER EXAMINE ON JOHN I TOOK HER BACK TO HER ROOM AND INFORMED HER NURSE THAT SHE WAS IN PAIN. SPOKE CODY GARCIA WITH [facility] AND INFORMED HER PATIENT WAS BACK IN HER ROOM.
--- NOTE | 2017-01-21 10:00 | NUR ---
RECEIVED REFERRAL THAT PATIENT CAN GO THE SNF IN [place] TODAY. AND THAT SHE WILL NEED TO GO VIA AMBUALANC. I SPOKE TO RADHA WITH [facility] AND THEY CAN TRANSPORT TODAY AT 1230. I NOTIFIED THE [place] [facility] AND SPOKE TO RUTHY AND UPDATED HER WILL FAX ORDERS TO HER. PACKET HAS BEEN STARETD. NOTIFIED PATIENT'S DAUGHTER JEANETTE AND UPDATED HER WELL SHE IS IN AGREEMENT TO THE DISCHARGE PLAN.
--- NOTE | 2017-01-21 13:08 | NUR ---
Alert and oriented but very forgetful. Up with 1-2 assist, gait belt, and walker. Increased pain when changing positions and sitting upright. Uses bedside commode. Up to chair. Lidocaine patch x2 on left back hip area. IV and PO dilaudid given just prior to to transfer. Have been alternating Dilaudid PO and [place] giving one every 2hrs. Patient is very anxious about making sure she has these on time although PRN. Port to right chest deaccessed. Vital signs stable, afebrile, on room air. Tolerating regular diet well. Family very involved. DNR status while here. Had cystoscopy Wednesday.
== END 2017-01-21 13:10 | DRG 988 ==
LOC: GMED 15:20 → GMSU 18:35
PROVIDERS: Emergency Medicine; Family Medicine; ADMIT Internal Medicine
PROC: 0T5B8ZZ Destruction of Bladder, Via Natural or Artificial Opening Endoscopic (ICD-10-PCS; principal; 2017-01-19)
PROC: 0TBB8ZX Excision of Bladder, Via Natural or Artificial Opening Endoscopic, Diagnostic (ICD-10-PCS; principal; 2017-01-19)
DX: M80.08XA Age-related osteoporosis with current pathological fracture, vertebra(e), initial encounter for fracture (principal); C56.9 Malignant neoplasm of unspecified ovary; C78.6 Secondary malignant neoplasm of retroperitoneum and peritoneum; G62.9 Polyneuropathy, unspecified; D63.8 Anemia in other chronic diseases classified elsewhere; I10 Essential (primary) hypertension; E55.9 Vitamin D deficiency, unspecified; D64.9 Anemia, unspecified; F41.9 Anxiety disorder, unspecified; R79.1 Abnormal coagulation profile; R00.0 Tachycardia, unspecified; M81.0 Age-related osteoporosis without current pathological fracture; R31.0 Gross hematuria; K59.00 Constipation, unspecified; T45.1X5A Adverse effect of antineoplastic and immunosuppressive drugs, initial encounter; Z82.49 Family history of ischemic heart disease and other diseases of the circulatory system; Z86.711 Personal history of pulmonary embolism; Z79.01 Long term (current) use of anticoagulants; Z66 Do not resuscitate; Z87.440 Personal history of urinary (tract) infections
CPT/HCPCS: A9577; J0690; J0885; J1170; J1650; J3010; J3475; J3489; J7030; J7040

== ENCOUNTER 2017-02-02 08:27 | Inpatient (IN) | payer MEDICARE, OTHER ==
[~2017-02-02] VITALS: Ht 172.7 cm; Wt 74.6 kg
--- NOTE | ~2017-02-02 | CON ---
PATIENT'S NAME: JOHN VILLALPANDO [facility] AGE: 81 Y [address] ROOM: [place] [address] LOCATION: GPCU ADMIT DATE: 02/02/2017 Consultation DISCHARGE DATE: FAMILY PHYSICIAN: Rowdy Petty PA-C ATTENDING PHYSICIAN: RON FLORES DATE OF CONSULTATION: 02/03/2017 REFERRING PHYSICIAN: FERDA GAYTAN MD REASON FOR CONSULTATION: Bacillus bacteremia. SUBJECTIVE: John is a very pleasant 81-year-old female, whom I am asked to see today in consultation by Dr. Flores for further evaluation and treatment recommendations regarding Bacillus bacteremia. She was admitted on 02/02/2017 with complaint of gross hematuria. She was found to be somewhat hypotensive in the Emergency Room. Blood cultures have grown Bacillus species from both sets. She denies any fevers, chills, or sweats. She has a port that she has been getting chemotherapy through, which has been present for about two years. PAST MEDICAL HISTORY: 1. Ovarian cancer with peritoneal carcinomatosis. 2. Pelvic insufficiency fracture. 3. Pulmonary embolism in 2005. 4. Hypertension. CURRENT MEDICATIONS: See the [facility] for complete listing. She is currently on levofloxacin for antibiotics. ALLERGIES: SULFA. FAMILY HISTORY: Significant for heart disease. SOCIAL HISTORY: No tobacco or alcohol abuse history in my knowledge. REVIEW OF SYSTEMS: A complete review of systems was carried out, and was remarkable only as noted. Please refer to the admission history and physical for further details. PATIENT'S NAME: JOHN VILLALPANDO [facility] [place] AGE: 81 Y [address] ROOM: [place] [address] LOCATION: GPCU ADMIT DATE: 02/02/2017 Consultation DISCHARGE DATE: FAMILY PHYSICIAN: Rowdy Petty PA-C ATTENDING PHYSICIAN: RON FLORES OBJECTIVE: GENERAL: She appeared weak, but comfortable and nontoxic. She was in no acute distress. VITAL SIGNS: Temperature is 36.7, blood pressure is 126/57, and pulse is 105. HEENT: Posterior pharynx was clear. No adenopathy or thyromegaly. Cranial nerves were intact. NECK: Supple. CHEST: Clear to auscultation. Incidentally noted was a right chest wall port, which was accessed and otherwise unremarkable. CARDIOVASCULAR: Regular rhythm without S3, S4, or murmur. ABDOMEN: Soft. Some areas of nodularity, possibly suggesting the peritoneal carcinomatosis. EXTREMITIES: Unremarkable. NEUROLOGIC: Strength was somewhat globally diminished. Sensation was grossly intact. PSYCHIATRIC: Behavior and affect were appropriate. LABORATORY DATA: Creatinine was 0.8 and alkaline phosphatase was 179. White count is 18.4. Microbiology: Blood cultures x2 on 02/03/2017 have been ordered. Blood cultures x2 on 02/02/2017 showed Bacillus non-anthracis species from both sets. RADIOLOGY: CT of abdomen on 02/02/2017 showed neoplastic omental involvement. Otherwise, no acute findings. Chest x-ray on 02/02/2017 is unremarkable. IMPRESSION: Positive blood cultures for Bacillus species - normally this would be considered a contaminant, but is present from two separate blood draws, one of which is drawn peripherally; the other is not labeled. In any event, this may represent a bacteremia secondary to her port. Given her advanced cancer and her stated desire not to undergo further treatment for this, I do not feel that we need to be extremely aggressive in treating this, and we do not need to retain the port if not needed. Other diagnoses are stable, as noted above. PLAN: We will exchange mechanic to vancomycin, initially 1 g every twelve hours, with the dose adjusted as needed. I would anticipate a two-week course of antibiotics, if there are no further positive blood cultures. If she makes steady improvement and is able to discharge in the near future, we could exchange mechanic to oral ciprofloxacin 750 mg twice daily as Bacillus species are generally PATIENT'S NAME: JOHN VILLALPANDO [facility] [place] AGE: 81 Y [address] ROOM: [place] [address] LOCATION: GPCU ADMIT DATE: 02/02/2017 Consultation DISCHARGE DATE: FAMILY PHYSICIAN: Rowdy Petty PA-C ATTENDING PHYSICIAN: RON FOLRES susceptible to this agent as well. If she has more positive blood cultures, then I think it would be advisable to remove the port. Thank you for this consultation. I or one of my colleagues will be available to see her in one week, otherwise she can follow up with us on a p.r.n. basis. Please call with any questions at [phone]. MD SIA BURCH/modl /[id number] CC: Ron Flores MD d: 02/03/172050 t: 02/04/17811, CONSULTATION REPORT
--- NOTE | ~2017-02-02 | CON ---
[facility] 81 Y [address] ROOM: [place] [address] LOCATION: GPCU ADMIT DATE: 02/02/2017 Consultation DISCHARGE DATE: FAMILY PHYSICIAN: Rowdy Petty PA-C ATTENDING PHYSICIAN: RON THRASHER DATE OF CONSULTATION: 02/02/2017 REFERRING PHYSICIAN: FREDA GAYTAN MD CHIEF COMPLAINT: Blood in urine. HISTORY OF PRESENT ILLNESS: The patient is a pleasant, 81-year-old female who was admitted for gross hematuria and urinary retention. She does have a previous history of gross hematuria. She had underwent recent cystoscopy with bladder biopsy and fulguration on January 19, 2017. Final pathology consistent with atypical urothelium, but no obvious bladder malignancy. 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 She was admitted from the emergency room where a standard catheter was placed and not a 3-way Acuña catheter. That catheter was not draining, and I instructed nursing to replace with a 24-Stateless Akash clot-evacuation Acuña catheter, irrigate clot out, and place to continuous bladder irrigation. She also has been on anticoagulation and does have a history of bilateral pulmonary embolus back in 2016. Her INR was elevated upon admission and was 3.56. She did have a brief moment of nausea with vomiting earlier in the morning prior to admission. Her bowel movements have been pretty regular without any blood. She denies any diarrhea or constipation. She has had some lower extremity weakness and pain in her lower back with radiating numbness and tingling into her left hip to her knee. She has not had any urinary or bowel incontinence. The patient has no further questions or concerns. PAST MEDICAL HISTORY: 1. History of omental carcinomatosis. 2. History of pulmonary embolus. 3. Sacral insufficiency fracture. 4. Stage IV ovarian cancer. 5. Anemia of chronic disease. 6. Vitamin D deficiency. 7. Essential hypertension. 8. Chronic narcotic use. PAST SURGICAL HISTORY: 1. Port placement. [facility] AGE: 81 Y [address] ROOM: [place] [address] LOCATION: GPCU ADMIT DATE: 02/02/2017 Consultation DISCHARGE DATE: FAMILY PHYSICIAN: Rowdy Petty PA-C ATTENDING PHYSICIAN: RON THRASHER 2. History of paracentesis. 3. D and C. 4. Cystoscopy with bladder biopsy and fulguration on January 19, 2017. SOCIAL HISTORY: The patient is a nonsmoker. She is retired. She denies any alcohol use. She is and has 7 children. FAMILY HISTORY: The patient denies any known family history of genitourinary abnormalities or malignancy. ALLERGIES: SULFA DRUGS. CURRENT MEDICATIONS: See hospitalization medication reconciliation. REVIEW OF SYSTEMS: A full [id number]-[id number] review of systems was performed and is included on a separate page attached in the chart. Pertinent positive and negative findings also included in the History of Present Illness. PHYSICAL EXAMINATION: VITAL SIGNS: Stable. CONSTITUTIONAL: No acute distress. The patient is awake and oriented. HEENT: Extraocular muscles intact. Mucous membranes moist. No drainage per ears or nose. CARDIAC: Good peripheral perfusion. RESPIRATORY: No audible wheezing or stridor. GASTROINTESTINAL: Abdomen is benign. GENITOURINARY: Indwelling Acuña catheter draining red-tinged urine output on continuous bladder irrigation. SKIN: No rashes or open sores. NEUROLOGIC: No focal deficits noted. PSYCHIATRIC: Answers questions appropriately. HEMATOLOGIC: The patient does have blood in her Acuña catheter. IMPRESSION: 1. Gross hematuria. 2. Clot urinary retention. 3. History of chronic anticoagulation. 4. History of urinary tract infection. 5. Supratherapeutic INR. PATIENT'S NAME: JOHN VILLALPANDO [facility] AGE: 81 Y [address] ROOM: [id number] [place], [place] [id number] LOCATION: GPCU ADMIT DATE: 02/02/2017 Consultation DISCHARGE DATE: FAMILY PHYSICIAN: Rowdy Petty PA-C ATTENDING PHYSICIAN: RON THRASHER PLAN: I had a long discussion today with the family and the patient regarding my recommendations and findings. I would recommend continued continuous bladder irrigation with as needed clot evacuation if any further difficulty with catheter drainage. Certainly, if we cannot wean her off the continuous bladder irrigation or she appears to have a substantial volume of clot that is not evacuating, we may need to take her back to the operating room again for cystoscopy, clot evacuation, and possible fulguration. For now, however, we will plan to continue the continuous bladder irrigation. The patient's questions and concerns were addressed, and she has no further at this time. FREDA GAYTAN MD GP/oren /[id number] d: 02/03/17 1244 t: 02/03/17 1340, CONSULTATION REPORT
--- NOTE | ~2017-02-02 | HP ---
PATIENT'S NAME: JOHN VILLALPANDO [facility] AGE: 81 Y [address] ROOM: [id number] [place] [id number] LOCATION: GPCU ADMIT DATE: 02/02/2017 History & Physical DISCHARGE DATE: FAMILY PHYSICIAN: Rowdy Petty PA-C ATTENDING PHYSICIAN: RON FLORES DATE OF SERVICE: 02/02/2017 CHIEF COMPLAINT: Hematuria. HISTORY OF PRESENT ILLNESS: This is an 81-year-old female with a history of ovarian cancer with peritoneal carcinomatosis, currently not on any chemotherapy and also history significant for a history of pulmonary embolism in 2016, on long-term anticoagulation with Coumadin, was recently hospitalized from 01/11/2017 to 01/21/2017 for intractable pain and sacral insufficiency fracture where she was treated nonoperatively. She also had undergone a cystoscopy for a recent history of hematuria and was found to have mucosal bladder lesion. Bladder biopsies were sent for pathologic analysis and showed atypical urothelium seen in association with mucosal erosion. She did not have any complications post procedural and then resumed on anticoagulation with Lovenox and Coumadin until her INR was greater than 2. She was discharged to [facility] in stable condition. Approximately 3 days ago, she noticed some blood in her urine while on Coumadin. She said she was able to void without any problems until this morning at 5:30 when she began to have some abdominal discomfort and bladder spasms, and so she was brought to the emergency room here in [place]. Workup revealed the patient to be hypotensive and was given IV fluid resuscitation. She did have a hemoglobin of 9.8, this was 1 g less than her discharge date. She was also found to have an INR that was supratherapeutic at 3.56. She was brought from the emergency room to the progressive care unit in stable fashion, however, when she arrived, her blood pressures had dropped and heart rates had risen. She had a systolic blood pressure in the 70s and heart rate in the 130s, however, she was alert and oriented and relatively asymptomatic. She was given a liter of IV fluid and corrected her hypotension and saw a decrease in her heart rate by 10 beats per minute. She currently denies any lightheadedness, dizziness, or headaches. She denies any recent illnesses, weight losses, or weight gain. She denies any sore throat or cough. She denies any shortness of breath or chronic lung state. She does have a history of a PE in 2016. She denies any chest pains or palpitations. She does complain of some abdominal pain and occasional bladder spasms. She does say she had a brief moment of nausea with vomiting early this morning but has not had recurrence. She states normal bowel movements without any blood. She PATIENT'S NAME: JOHN VILLALPANDO [facility] AGE: 81 Y [address] ROOM: [id number] [place], [place] [address] [facility] DATE: 02/02/2017 History & Physical DISCHARGE DATE: FAMILY PHYSICIAN: Rowdy Petty PA-C ATTENDING PHYSICIAN: RON FLORES denies any diarrhea or constipation. She does complain of some lower extremity weakness and pain in her lower back with radiating numbness and tingling into her left hip to her knee but has been relatively well controlled on her pain regimen. She denies any urinary or bowel incontinence. REVIEW OF SYSTEMS: All other systems reviewed and were deemed negative other than mentioned above in the HPI. ALLERGIES: SULFA. HOME MEDICATIONS: From the information available from [facility] is: 1. Lidocaine patch 5% apply to left hip, buttock topically one time a day. 2. Milk of magnesia 30 mL by mouth every 24 hours as needed. 3. Ransom 5/325 mg 1 tablet by mouth every 4 hours as needed for pain. 4. Refresh eye drops instill one drop in both eyes one time a day for dry eyes. 5. Vitamin D3 50,000 units 1 tablet by mouth one day every Wednesday until 02/22/2017. 6. Coumadin 5 mg p.o. one time daily. 7. Zofran ODT 8 mg by mouth every 6 hours as needed for nausea. 8. Sertraline 50 mg p.o. 1 tablet by mouth daily. 9. Diphenhydramine, lidocaine 10 mL every 6 hours as needed for sore mouth. Query complete list from [facility]. PAST MEDICAL HISTORY: 1. 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 2. Anemia of chronic disease. 3. Vitamin D deficiency. 4. Essential hypertension. 5. History of bilateral pulmonary embolism in 2016. 6. Sacral insufficiency fracture. 7. Chronic narcotic use. PAST SURGICAL HISTORY: 1. Port placement. 2. History of paracentesis. 3. D and C. SOCIAL HISTORY: Nonsmoker. She denies any alcohol or drug use. She is currently . They have 7 children. PATIENT'S NAME: JOHN VILLALPANDO [facility] AGE: 81 Y [address] ROOM: [place] [address] LOCATION: GPCU ADMIT DATE: 02/02/2017 History & Physical DISCHARGE DATE: FAMILY PHYSICIAN: Rowdy Petty PA-C ATTENDING PHYSICIAN: RON FLORES FAMILY HISTORY: Mother had heart disease, otherwise negative for any familial cancers. PHYSICAL EXAMINATION: VITAL SIGNS: Reveal afebrile temperature, [facility], corrected to 114/59 most recent, heart rate of 136, appearing normal rhythm on telemetry, her oxygen saturation 97% on room air. BMI is 26.3. GENERAL: This is an 81-year-old female. She is . She is pale. She is calm and cooperative with examination. She is alert and oriented to questions, however, is forgetful with some recall. HEENT: Her head is normocephalic, atraumatic. She is balding. Her eyes, extraocular movements are intact. Her pupils are equal, round, and reactive to light and accommodation. NECK: Supple without any lymphadenopathy or thyromegaly. LUNGS: Clear throughout all erickson. There is equal and symmetric expansion. Respiratory rate is normal. HEART: Regular S1, S2 present. Rate is elevated in 130s. Rhythm appears sinus on telemetry and is auscultated regular. No murmur noted. No gallop noted. No pedal edema or JVD. ABDOMEN: Soft with tenderness over the umbilicus and bladder area down into the pelvis. Bowel sounds are present in all 4 quadrants. No CVA tenderness. : Reveals a Acuña catheter intact with mitchell hematuria and clots within the tubing. EXTREMITIES: Equal and symmetric without any cyanosis or clubbing. Pedal pulses 2+. Strength is equal bilaterally. NEURO: Cranial nerves 2 through 12 appear intact. LABORATORY FINDINGS: From the emergency department show an ABG with a pH of 7.41, pCO2 of 35, pO2 of 43, and a bicarb of 22.2. Lactate was 4.7. Cardiac enzymes reveal CPK of 23, a troponin of less than 0.040, and a CK-MB of less than 0.5, her proBNP was 145. A white blood cell count of 18.7, hemoglobin of 9.8, hematocrit of 32.0, and a platelet count of 451. Neutrophils are mildly shifted at 81.3%. PTT is 45, pro-time is 37.9, and INR is 3.56. CMS shows a glucose of 143, BUN 18, creatinine 1.3, sodium 140, potassium of 4.7, chloride 104, CO2 of 22, calcium 8.0. Total protein 6.6, albumin of 2.5, AST of 38, ALT of 27, alkaline phosphatase 179, total bilirubin 0.4, anion gap PATIENT'S NAME: JOHN VILLALPANDO [facility] AGE: 81 Y [address] ROOM: [place] [address] [facility]: 02/02/2017 History & Physical DISCHARGE DATE: FAMILY PHYSICIAN: Rowdy Petty PA-C ATTENDING PHYSICIAN: RON FLORES 18.7, and a GFR of 39. Urinalysis shows red, 4+ turbid urine with a specific gravity of 1.010, pH of 7.0, leukocytes negative, nitrites negative, proteins 500, glucose negative, ketones negative, urobilinogen normal, bilirubin negative, blood 150, white blood cells, negative, red blood cells full field, epithelial negative, bacteria negative. Lipase 142. Procalcitonin 0.14. RADIOLOGIC IMAGING: CT abdomen and pelvis shows distended bladder containing heterogeneous material likely blood with a Acuña catheter in place in the bladder. There was a small amount of volume free fluid in the pelvis. Neoplastic omental involvement and sacral insufficiency fractures. Chest x-ray shows stable nonacute chest. Blood cultures are pending. IMPRESSION AND PLAN: An 81-year-old female with hemorrhagic shock and gross hematuria while on supratherapeutic Coumadin level, admitted into progressive care unit as an inpatient. 1. Hemorrhagic shock. We will go ahead and type and cross 2 units of packed red blood cells and transfuse 1 unit of packed red blood cells. We will reverse her INR, which is currently supratherapeutic with 2 units of FFP as well as Vitamin K oral. We will also continue to push intravenous fluid bolus, which she has already responded to and continue with routine nursing vital signs to monitor closely. 2. Gross hematuria. I spoke with Dr. Morales on the phone, and we will place a 24-Pakistani Akash three-way Acuña catheter and irrigate the clots and start her on continuous bladder irrigation. Official consultation from Dr. Morales is pending. We will go ahead and reverse her INR and check her hemoglobin serially. 3. Acute blood loss anemia secondary to gross hematuria. We will go ahead and repeat her labs and serially monitor her H and H. We will replace her blood with 1 unit. 4. Supratherapeutic INR. Plan as above to reverse with FFP and vitamin K. 5. History of pulmonary embolism in 2016. We will continue to hold anticoagulation for now and further discuss necessity down the road. 6. 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 Currently not on any chemotherapy. We will obtain official consultation from Dr. Dow and supportive with palliative care nurse practitioner as she has seen PATIENT'S NAME: JOHN VILLALPANDO [facility] AGE: 81 Y [address] ROOM: [place] [address] LOCATION: GPCU ADMIT DATE: 02/02/2017 History & Physical DISCHARGE DATE: FAMILY PHYSICIAN: Rowdy Petty PA-C ATTENDING PHYSICIAN: RON FLORES her in the past. 7. Acute kidney injury. She does appear to be hypovolemic. We will monitor as we give her IV fluid to see if she corrects. Most likely, etiology is prerenal. Baseline creatinine is normal. On CT scan of the abdomen and pelvis, there was no noted hydronephrosis or perinephric fluid collections. 8. Sacral insufficiency fracture. We will continue pain management. The patient will be on bed rest given the hematuria for now, and we will go ahead and mobilize with physical therapy and occupational therapy when appropriate. We will continue her pain management as she was getting as an outpatient. 9. Deep venous thrombosis prophylaxis will be maintained with pneumatic compression devices in light of contraindication to anticoagulation. 10. Code status. Do not resuscitate and do not intubate. 11. Palliative Care consultation obtained. The above line of management was discussed with the patient and family, power of sports attorney at the bedside. She was also discussed with Dr. Flores and agreed upon. All questions were answered with statements of understanding. TORI BAE APRN, APRN FOR MD ROSANNA JACINTO/oren /[id number] D: T: [id number] HISTORY & PHYSICAL
--- NOTE | ~2017-02-02 | CON ---
PATIENT'S NAME: JOHN VILLALPANDO [facility] AGE: 81 Y [address] ROOM: [place] [address] LOCATION: GPCU ADMIT DATE: 02/02/2017 Consultation DISCHARGE DATE: 02/05/2017 FAMILY PHYSICIAN: Rowdy Petty PA-C ATTENDING PHYSICIAN: Mila Flores DATE OF CONSULTATION: 02/02/2017 REFERRING PHYSICIAN: Mekhi Morales MD LOCATION: U, room [facility]. REFERRING PROVIDER: Delroy Barboza APRN. CHIEF COMPLAINT: Palliative Care referral for ongoing patient and family support. HISTORY OF PRESENT ILLNESS: The patient is an 81-year-old female, who is well known to Palliative Care Services due to a recent hospitalization January 11 through January 21. During which time, she was treated for intractable pain and sacral insufficiency fracture. The patient also has a known history of ovarian cancer with peritoneal carcinomatosis, chemotherapy is currently on hold, as well as a history significant for pulmonary embolism in 2015, during which time Palliative Care was initially consulted on the patient. During the patient's last hospital stay, she had undergone a cystoscopy due to a recent history of hematuria and was found to have a mucosal bladder lesion associated with mucosal erosion. She did not have any complications postprocedural and was discharged to [facility] on anticoagulation. Approximately 3 days prior to admission, the patient noted some blood in her urine and on the morning of admission, she noticed some abdominal discomfort and bladder spasms and was brought to the emergency room for further evaluation. In the ER, the patient was noted to have a drop in hemoglobin and on arrival to the progressive care unit, she became hypotensive and tachycardic. Given the patient's history with Palliative Care, family request for Palliative Care to follow during this hospitalization as well. PREVIOUS OPERATIONS: 1. Port placement. 2. History of paracentesis. 3. D and C. 4. Recent cystoscopy with biopsy. PAST MEDICAL HISTORY: PATIENT'S NAME: JOHN VILLALPANDO [facility] AGE: 81 Y [address] ROOM: [place] [address] LOCATION: GPCU ADMIT DATE: 02/02/2017 Consultation DISCHARGE DATE: 02/05/2017 FAMILY PHYSICIAN: Rowdy Petty PA-C ATTENDING PHYSICIAN: Mila Flores 1. Ovarian cancer with peritoneal carcinomatosis and a history of ascites. 2. History of pulmonary embolism in January 2016. 3. Pulmonary hypertension. 4. Chronic GI blood loss. 5. Anemia of chronic disease. 6. Malignant pleural effusions. 7. History of acute kidney injury. MEDICATIONS: Please see current MAR. ALLERGIES: SULFA. SOCIAL HISTORY: The patient is and has been living in [place] with her . Following the last hospital stay, was discharged to [facility] for therapy and ongoing pain management support. She has 7 children, who provide good support. No history of tobacco or alcohol use. FAMILY HISTORY: Mother had heart disease. Her father had asthma. She had 2 brothers with coronary artery disease. REVIEW OF SYSTEMS: GENERAL: Appetite has been fair. No recent weight loss. No recent fever, chills, or night sweats. HEENT: No change in vision or hearing. No headaches. Denies sinus congestion. RESPIRATORY: Denies shortness of breath or cough. CARDIOVASCULAR: No chest pain or pressure. Denies orthopnea. No peripheral edema. GASTROINTESTINAL: No nausea, vomiting, or diarrhea. Has intermittent issues with constipation due to her narcotics. No black or tarry or bright red stools. Denies difficulties chewing or swallowing. GENITOURINARY: Noted hematuria approximately 3 days ago and on the morning of admission, was having difficulties urinating and having bladder spasms. Complains of severe suprapubic abdominal pain. MUSCULOSKELETAL: Complains of bilateral hip and lower back pain. Reports this had been fairly well managed at the correction prior to this acute event. Was able to ambulate to the bathroom at the correction. NEUROLOGICAL: No new numbness or tingling. No dizziness. No seizures. INTEGUMENTARY: No rashes or open areas. PHYSICAL EXAMINATION: PATIENT'S NAME: JOHN VILLALPANDO [facility] AGE: 81 Y [address] ROOM: [id number] [place], [place] [address] LOCATION: GPCU ADMIT DATE: 02/02/2017 Consultation DISCHARGE DATE: 02/05/2017 FAMILY PHYSICIAN: Rowdy Petty PA-C ATTENDING PHYSICIAN: Mila Flores VITAL SIGNS: Blood pressure 134/75, heart rate 103, temperature 98.3, respirations 16, and O2 saturation 90% on room air. GENERAL: Reveals an alert and oriented elderly white female, who is lying in a hospital bed. Does appear to be in [id number]-[id number] pain. HEENT: Normocephalic and atraumatic. Pupils are equal, round, and reactive to light. Sclerae are nonicteric. Conjunctivae pink. Does have alopecia. Tongue and mucous membranes are moist and pink. Dentition is adequate. CARDIOVASCULAR: Heart tones tachycardiac. Regular rate and rhythm. RESPIRATORY: Respirations are regular and nonlabored. Lung sounds are clear to auscultation bilaterally. I am not able to note any rales, rhonchi, or wheezes. GASTROINTESTINAL: Bowel sounds are present. GENITOURINARY: Acuña catheter is intact with red bloody clots. Does have severe suprapubic tenderness and the area is hard to palpation and tender to palpation. MUSCULOSKELETAL: No significant joint deformities. Peripheral pulses are 1+ bilaterally. No clubbing, cyanosis, or edema. SKIN: Warm and dry. No unusual lesions or rashes. NEUROLOGIC: Grossly intact. Mental status is unremarkable. IMPRESSION AND PLAN: 1. Bilateral hip pain secondary to sacral insufficiency fracture. We will continue on home medications. Pain related to bladder, urinary retention, and hematuria. Nursing is working on starting CBI. 2. Code status. The patient is a DNR/DNI. This was confirmed with the patient and her family, who are at bedside. Supportive visit with the patient and family, answered their questions and updated them on her current labs and overall condition. Answered their questions to the best of my ability. They denied any other needs or concerns at this time. We will continue to follow for support and education as needed. Total visit was 30 minutes, greater than 15 minutes of time was spent providing education and coordinating care with staff and family. Thank you for allowing me to assist the patient and her family. JEANA BYERS NP FOR MD JOSE ALBERTO CHIN/modl /[id number] PATIENT'S NAME: JOHN VILLALPANDO [facility] AGE: 81 Y [address] ROOM: [place] [address] LOCATION: [facility] ADMIT DATE: 02/02/2017 Consultation DISCHARGE DATE: 02/05/2017 FAMILY PHYSICIAN: Rowdy Petty PA-C ATTENDING PHYSICIAN: Mila Flores CC: Delroy Barboza APRN, LOREN d: 02/09/171941 t: 02/10/17 1424, CONSULTATION REPORT
--- NOTE | ~2017-02-02 | HP ---
PATIENT'S NAME: JOHN VILLALPANDO [facility] AGE: 81 Y [address] ROOM: [address] [place] [address] [facility] AD[facility] DATE: 02/02/2017 History & Physical DISCHARGE DATE: FAMILY PHYSICIAN: Rowdy Petty PA-C ATTENDING PHYSICIAN: RON FLORES DATE OF SERVICE: ADDENDUM: This is an addendum to the H and P. Admission medications confirmed as; 1. Nasal saline 1 gram in both nostrils one time a day. 2. Colace 200 mg p.o. one time daily. 3. Coumadin 5 mg p.o. daily. 4. Fentanyl 75 mcg one patch transdermal, changed every 3 days, last changed on February 01. 5. Ferrous sulfate 325 mg one tablet p.o. once daily. 6. MiraLax 17 grams p.o. once daily. 7. Lidocaine patch 5% to be applied to the left hip once daily. 8. Refresh eyedrops one drop in each eye one time daily. 9. Vitamin D3, 50,000 units one tablet by mouth every Wednesday for a total of 6 weeks. 10. Zoloft 50 mg p.o. once daily. 11. Dilaudid 4 mg one tablet every 4 hours as needed. 12. Diphenhydramine, lidocaine, 10 mL p.o. every 6 hours as needed for sore mouth. 13. Dulcolax suppository 10 mg per rectum every 24 hours as needed for bowel movement. 14. Milk of magnesia 30 mL p.o. every 24 hours as needed for bowel movement. 15. [place] 5/325 mg one tablet by mouth every 4 hours as needed alternating with Dilaudid. 16. Zofran 8 mg ODT every 6 hours as needed for nausea. IMPRESSION AND PLAN: Leukocytosis. The patient did get an infectious workup, which revealed a mildly elevated procalcitonin level and elevated lactate. Upon admission, the patient did receive IV antibiotics and had blood cultures drawn. In review with Dr. Flores, the patient does remain afebrile and he does not feel that this is infectious at this point in time. We will continue close observation and monitoring. If fever occurs, sepsis workup to be obtained. PATIENT'S NAME: JOHN VILLALPANDO [facility] AGE: 81 Y [address] ROOM: [place] [address] LOCATION: [facility] ADMIT DATE: 02/02/2017 History & Physical DISCHARGE DATE: FAMILY PHYSICIAN: Rowdy Petty PA-C ATTENDING PHYSICIAN: RON FLORES APRN, [employer]NAGER [employer] FOR MD ROSANNA JACINTO/oren /[id number] D: T: [id number] HISTORY & PHYSICAL
--- NOTE | ~2017-02-02 | OR ---
PATIENT'S NAME: JOHN VILLALPANDO [facility] AGE: 81 Y [address] ROOM: [place] [address] LOCATION: [facility] ADMIT DATE: 02/02/2017 OR/Procedure Report DISCHARGE DATE: FAMILY PHYSICIAN: Rowdy Petty PA-C ATTENDING PHYSICIAN: RON THRASHER SURGEON: Freda Morales MD CLOTH NAPPING SUPERVISOR: None. DATE OF PROCEDURE: 02/04/2017 PREOPERATIVE DIAGNOSES: 1. Gross hematuria. 2. Clot urinary retention. 3. Chronic anticoagulation. POSTOPERATIVE DIAGNOSES: 1. Gross hematuria. 2. Clot urinary retention. 3. Chronic anticoagulation. OPERATIVE PROCEDURES: 1. Cystoscopy with clot evacuation. 2. Cystogram. INDICATIONS FOR PROCEDURE: The patient is a pleasant 81-year-old female with history of recurrent gross hematuria and history of pulmonary embolus for which she has remained on chronic anticoagulation. She has had difficulties with supratherapeutic INRs leading to hospitalizations with gross hematuria. She had most recently underwent cystoscopy with bladder biopsy and fulguration on January 19, 2017, with pathology which was negative for malignancy. 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 During this hospitalization, she was admitted for gross hematuria and clot urinary retention. We have had continued difficulty with evacuating her clot despite irrigation with 3-way Acuña catheter as well as continuous bladder irrigation. The patient was explained the risks, benefits, indications, and alternatives to the above procedure and wished to proceed and consented freely. Anesthesia monitored anesthesia care. DESCRIPTION OF OPERATION: The patient was brought back to the operating room, where she was placed on the OR table in the supine position. A surgical time- out was called where patient identification, surgical site, and procedure were then verified. We also did verify that she was receiving an IV vancomycin antibiotic within an hour of beginning the procedure. The patient then underwent successful administration of monitored anesthesia care. The patient was then moved and placed in a low lithotomy position. Her genital area was PATIENT'S NAME: JOHN VILLALPANDO [facility] AGE: 81 Y [address] ROOM: [place] [address] LOCATION: [facility] ADMIT DATE: 02/02/2017 OR/Procedure Report DISCHARGE DATE: FAMILY PHYSICIAN: Rowdy Petty PA-C ATTENDING PHYSICIAN: RON THRASHER then prepped and draped in the usual sterile fashion. I carefully advanced a rigid resectoscope sheath using the visual obturator easily into the patient's urinary bladder. Her urethra was within normal limits. Upon entry into her bladder, I visualized a significant volume of clot, which appeared to be occupying her entire bladder. I then began performing clot evacuation using the Ellik evacuator. I did evacuate out a moderate amount of clot, but there did appear to be still a significant amount of clot remaining within her bladder, and it appeared to be more mature clot, and I was having difficulty breaking this up and evacuating this clot, which was more formed within her bladder with the Ellik evacuator. At this point, it was becoming clear that I would not be able to get her evacuated with the Ellik evacuator and opted to proceed with transurethral resection of this clot using a bipolar loop electrode using the resectoscope. This was a more challenging procedure given the mobile nature of the large clot and significant volume of the clot. I took care to continue to break down the clot with the cutting loop and intermittently using the Ellik evacuator to continue to evacuate clot as was able to break it up. Given the complexity of the procedure, this took extra time and increased procedural intensity given the significant volume of clot and increased difficulty given that the clot was quite mobile and was hard to pin down with the resectoscope. I was taking care to stay away from the bladder shipley during my resection of this bladder clot. Ultimately, approximately 2 L of clot volume was evacuated from her bladder. Once I had finally fully evacuated out the entire volume of clot, I then inspected her bladder. There was an area along her posterior bladder wall where I had resected a small loop of bladder mucosa and tissue. The bladder still did appear to be filling appropriately and this did not appear to be a through-and- through bladder perforation. Given this finding, I did opt to perform a cystogram. I first placed a 24-Tanz[place] Akash 3-way Acuña catheter in her bladder with 30 mL of sterile water in the balloon. I then performed a cystogram and instilled approximately 300 mL of contrast within her bladder and there was no evidence of any bladder extravasation. The catheter did irrigate freely, and then I placed the catheter to continuous bladder irrigation. The patient was then taken out of the lithotomy position, where she was then awoken from monitored anesthesia care, transferred to the recovery bed, and transported to the recovery room in good condition. A 22 modifier will be used given the increased complexity, intensity, and procedural time required for this procedure. COMPLICATIONS: None. DRAINS: Indwelling 24-Tanzanian 3-way Acuña catheter to continuous bladder irrigation. SPECIMEN: None. PATIENT'S NAME: JOHN VILLALPANDO [facility] AGE: 81 Y [address] ROOM: [place] [address] LOCATION: [facility] ADMIT DATE: 02/02/2017 OR/Procedure Report DISCHARGE DATE: FAMILY PHYSICIAN: Rowdy Petty PA-C ATTENDING PHYSICIAN: RON THRASHER FOLLOWUP PLAN: We will plan to observe the patient overnight and continue to wean her off the continuous bladder irrigation. FREDA MORALES MD GP/modl /[id number] d: 02/05/17 0055 t: 02/11/17 1833, OPERATIVE SUMMARY
--- NOTE | ~2017-02-02 | ER ---
PATIENT'S NAME: JOHN VILLALPANDO [facility] AGE: 81 Y [address] ROOM: [place] [address] LOCATION: [facility] ADMIT DATE: 02/02/2017 ER/Outpatient Report DISCHARGE DATE: FAMILY PHYSICIAN: Rowdy Petty PA-C ATTENDING PHYSICIAN: RON FLORES Time of arrival: 0827 hours. Time of evaluation: 0827 hours. CHIEF COMPLAINT: Suprapubic pain, blood in urine. HISTORY OF PRESENT ILLNESS: The patient is an 81-year-old female who presents to the emergency department today with a chief complaint of suprapubic pain and blood in her urine. She was found to be hypotensive as well and tachycardic. The patient does have a history of ovarian cancer with metastasis, peritoneal. The patient did start urinating blood this morning. She does report some vaginal bleeding this morning as well. She denies any fevers or chills. No chest pain. No shortness of breath. No cough. No nausea or vomiting. She does have some suprapubic pressure or abdominal pain. It is currently 10/10 in severity. Denies any diarrhea or headache. The patient also has a recent sacral fracture that is painful as well. The patient was recently released from the hospital at the end of December. At that time, while in the hospital, the patient did undergo a cystoscopy with cauterization. PAST MEDICAL HISTORY: Sacral insufficiency fracture, intractable pain, ovarian cancer with peritoneal carcinomatosis, history of pulmonary embolism on long-term anticoagulation, anemia of chronic disease, history of urinary tract infection with urinary incontinence, history of hematuria, DVTs, bilateral pulmonary embolisms, hypertension. PAST SURGICAL HISTORY: Cystoscopy, port placement, paracentesis, and D and C. SOCIAL HISTORY: The patient currently lives at [facility] in [place]. Denies any tobacco, alcohol, or illicit drug use. ALLERGIES: SULFA. MEDICATIONS: Please see list. PATIENT'S NAME: JOHN VILLALPANDO [facility] AGE: 81 Y [address] ROOM: [place] [address] LOCATION: [facility] ADMIT DATE: 02/02/2017 ER/Outpatient Report DISCHARGE DATE: FAMILY PHYSICIAN: Rowdy Petty PA-C ATTENDING PHYSICIAN: RON FLORES PRIMARY CARE DOCTOR: Rowdy Petty PA-C. HEME-ONC: Veronica Aly MD REVIEW OF SYSTEMS: All systems are reviewed by myself and negative with the exception of those discussed in HPI and past medical history. PHYSICAL EXAMINATION: VITAL SIGNS: Weight 73.5 kg, blood pressure 95/55, pulse 150, respiratory rate 28, temperature 98.1, oxygen saturation 95% on room air. GENERAL: The patient is an 81-year-old female who appears stated age. She appears pale, in moderate acute distress secondary to pain in her abdomen. HEENT: Normocephalic, atraumatic. Mucous membranes are mildly dry. NECK: Supple. No nuchal rigidity. CARDIOVASCULAR: Tachycardic. Regular rhythm. LUNGS: Clear to auscultation bilaterally. No wheezes, rales, or rhonchi. ABDOMEN: Soft with tenderness to palpation, suprapubic. There is no rebound rigidity, or guarding. Positive bowel sounds. MUSCULOSKELETAL: The patient moves all 4 extremities. SKIN: Pale and warm. LABORATORY DATA AND X-RAYS: Labs and x-rays are obtained. CBC: White blood cell count 18.7, hemoglobin 9.8, hematocrit 32.0, platelets 451. ANC is 15.2. PTT is 45, PT is 37.9, INR is 3.56. Venous blood gas 7.41/35/43/22/negative 1.9. Lactate is 4.7. EKG shows sinus rhythm with a rate of 141, normal axis, normal interval. There is no ST elevation. There are nonspecific T-waves are noted. CMP is unremarkable except for creatinine 1.3. Lipase is normal. LFTs are normal. CK is normal. CK-MB is normal. Troponin is less than 0.04. Urinalysis shows 500 protein, 150 blood, full field RBCs. One-view chest x-ray is obtained, interpreted by myself shows no acute cardiopulmonary process. Procalcitonin is 0.14. ProBNP is 145. CT scan of the abdomen and pelvis is obtained. I have discussed results with the radiologist, shows distended bladder with heterogeneous material likely blood. Acuña catheter in the bladder. There is small volume of free fluid in the pelvis. There is neoplastic omental involvement. There are sacral insufficiency fractures. IMPRESSION: 1. Hematuria with distended bladder. 2. Systemic inflammatory response syndrome positive. Unclear of source of infection. PATIENT'S NAME: JOHN VILLALPANDO [facility] AGE: 81 Y [address] ROOM: [id number] [place], [place] [address] [facility] AD[facility] DATE: 02/02/2017 ER/Outpatient Report DISCHARGE DATE: FAMILY PHYSICIAN: Rowdy Petty PA-C ATTENDING PHYSICIAN: RON FLORES 3. Sinus tachycardia. 4. Supratherapeutic INR. 5. Ovarian cancer with metastasis. 6. Sacral insufficiency fractures. 7. Anemia of chronic disease. 8. Initial visit. EMERGENCY DEPARTMENT COURSE: The patient brought back to the examination room. Seen and evaluated by myself. IV is established. Laboratory analysis and imaging are obtained as described above. The patient is given multiple doses of pain medicine. Acuña catheter was inserted, is irrigated. The patient is given 2250 mL of normal saline IV bolus. She is given 4.5 g of Zosyn IV as well as 1250 mg of vancomycin IV. I have discussed results with the patient and her daughters at the bedside. Recommended admission the hospital for further evaluation, treatment, and management. I have contacted Dr. Flores who is on-call for the Hospitalist Service. He has agreed to accept the patient for further evaluation, treatment, and management. I have contacted Dr. Gamble who is machine operations supervisor for Urology. He will discuss the case with Dr. Morales, and the patient will be seen in the hospital. DISPOSITION: The patient is admitted under the care of Hospitalist Service in stable condition. DO BEBO WESTFALL/roen /[id number] d: 02/02/17 1731 t: 02/03/17 0935, OUTPATIENT REPORT
--- NOTE | ~2017-02-02 | CON ---
PATIENT'S NAME: JOHN VILLALPANDO [facility] AGE: 81 Y [address] ROOM: [address] [place] [address] LOCATION: [facility] ADMIT DATE: 02/02/2017 Consultation DISCHARGE DATE: 02/05/2017 FAMILY PHYSICIAN: Rowdy Petty PA-C ATTENDING PHYSICIAN: RON FLORES REFERRING PHYSICIAN: FREDA MORALES MD CONSULT TO: Dr. Ron Flores. HISTORY OF PRESENT ILLNESS: John Villalpando is an 81-year-old woman with recurrent gross hematuria, on warfarin anticoagulation for a history of pulmonary emboli in the setting of primary peritoneal carcinomatosis. Recommendations regarding future anticoagulation versus an inferior vena cava umbrella are sought. Mrs. Villalpando is followed at [facility] for primary peritoneal carcinomatosis. The patient is well known to our service. The patient is currently on day 45 of her fourth cycle of paclitaxel and carboplatin, which led to a partial remission with fall in her CA-125 and decreased volume of ascitic fluid. The patient's primary peritoneal carcinomatosis was first diagnosed in May 2014. She presented with a malignant pleural effusion. She has received palliative chemotherapy since that time. From 04/10 through 05/23/2014, the patient received 3 cycles of paclitaxel plus carboplatin. On 06/12/2014, liposomal doxorubicin was substituted following 3 cycles of the paclitaxel and carboplatin, 4 cycles were administered through 10/09/2014. On 10/10/2014, single agent gemcitabine was substituted and five cycles were administered through 01/08/2015. On 01/24/2015, cyclophosphamide and carboplatin were substituted and six cycles were given through 06/25/2015. No further therapy was given until 01/01/2016 when tamoxifen was administered, but this was discontinued on 01/29/2016. On 01/17/2016, cyclophosphamide and carboplatin were substituted and six cycles were administered through 06/09/2016. On 10/20/2016, weekly paclitaxel and bevacizumab were substituted and the patient's CA-125 fell from 1084 U/L to 325 U/L with a decline in the ascitic fluid. The patient was hospitalized for gross hematuria and discharged on 01/21/2017 in presumed partial remission from relapse primary peritoneal carcinomatosis. The patient was actually first hospitalized at that point for sacral insufficiency fracture secondary to osteoporosis, to which she was predisposed by her postmenopausal state and hypovitaminosis D. The patient also had anemia of chronic inflammation. The patient has been on long-term anticoagulation for pulmonary emboli noted in March 2014 when her primary peritoneal carcinomatosis this was documented. On 01/19/2013, a cystoscopy with bladder biopsy and fulguration of 2 cm areas of posterior bladder wall mucosal lesions was performed. The biopsy revealed atypical urothelium associated with a PATIENT'S NAME: JOHN VILLALPANDO [facility] AGE: 81 Y [address] ROOM: [address] [address] LOCATION: [facility]U ADMIT DATE: 02/02/2017 Consultation DISCHARGE DATE: 02/05/2017 FAMILY PHYSICIAN: Rowdy Petty PA-C ATTENDING PHYSICIAN: RON FLORES submucosal erosions. Followup was planned with Dr. Banks, Dr. Aly, and Dr. Marty Anguiano. The patient was placed in [facility] in [place]. The patient subsequently developed recurrent gross hematuria and suprapubic pain, hypotension, and tachycardia. Complete bladder irrigation was initiated. 2 units of packed red blood cells were administered and fresh-frozen plasma was administered. The patient had persistent bleeding and clot formation despite complete bladder irrigation, so Dr. Freda Morales recommended and performed, on 02/04/2017, a cystoscopy with clot evacuation and cystogram. Dr. Morales makes the point he saw significant clots which appeared to occupy the entire bladder. He evacuated the clot to the extent he could, but only evacuated a moderate amount of it. There was persistent significant clot. Dr. Morales had to perform a transurethral resection of the clot using a bipolar loop electrode and resectoscope, which was difficult because the clot was quite enlarged. Two liters of clot volume was evacuated from the bladder. At that point, Dr. Morales inspected the bladder. There was a small area along the posterior wall bladder where Dr. Morales had resected a small lobe of bladder mucosa and tissue. The bladder appeared to be filling appropriately. There did not appear to be a bladder perforation. Dr. Morales did perform a cystogram to be sure he had not perforated the bladder. The catheter irrigated freely. The patient is seen for recommendations regarding the future anticoagulation or placement of an inferior vena cava umbrella. Dr. Morales presumes the patient will bleed in the future, if therapeutic anticoagulation is reinstated. ACTIVE MEDICAL PROBLEMS, CHRONIC AND DIAGNOSED: 1. Primary peritoneal carcinomatosis, most recurrent and metastatic pleural cavities noted in 2013. 2. Arterial hypertension. ACUTE MEDICAL ILLNESSES (RESOLVED),PAST SURGERIES/INJURIES: 1. Acute kidney injury in the past. 2. Acute pulmonary embolism and PE March 2014 complicated with pulmonary hypertension. MEDICATIONS: Upon hospitalization. 1. Bisacodyl suppository. 2. Diphenhydramine lidocaine, still lidocaine mouthwash. 3. Docusate sodium. 4. Transdermal fentanyl 75 mcg patch every 72 hours. 5. Ferrous sulfate 325 mg p.o. daily. 6. Hydromorphone 4 mg p.o. p.r.n. pain lidocaine patch daily. 7. Milk of magnesia p.r.n. 8. Ondansetron 8 mg p.o. p.r.n. PATIENT'S NAME: JOHN VILLALPANDO [facility] AGE: 81 Y [address] ROOM: [place] [address] LOCATION: [facility]U ADMIT DATE: 02/02/2017 Consultation DISCHARGE DATE: 02/05/2017 FAMILY PHYSICIAN: Rowdy Petty PA-C ATTENDING PHYSICIAN: RON FLORES 9. Polyethylene glycol 17 g p.o. daily. 10. Sertraline 50 mg daily. 11. Vitamin D 86861 units p.o. weekly for eight weeks. 12. Warfarin 5 mg p.o. daily/. Adverse reactions to medications, transfusions. ALLERGIES: 1. SULFAMETHOXAZOLE. 2. THE PATIENT RECEIVED PACKED RED BLOOD CELL IN DECEMBER OF 2015, IN DECEMBER OF 2016 AND 2013. SO FAR ON THIS HOSPITALIZATION SHE HAS RECEIVED 2 UNITS OF FRESH FROZEN PLASMA AND 4 UNITS OF PACKED RED BLOOD CELLS. SOCIAL HISTORY: The patient is a nonsmoker and nondrinker. REVIEW OF SYSTEMS: Negative other than those noted in the history of present illness. PHYSICAL EXAMINATION: VITAL SIGNS: Pulse 92 and regular, blood pressure 125/60, respiratory rate 16, temperature 97.9,v SpO2 95% on room air. GENERAL: Well-developed, alopecic, 81-year-old, female in no acute distress. HEENT. Unremarkable other than alopecia. Lymph nodes not palpable. NECK: Without JVD or carotid bruit. CHEST: Decreased breath sounds at the bases bilaterally. CV: Regular rhythm. No murmurs, bruits, or adventitious sounds. BREASTS: Not examined. ABDOMEN: No masses, tenderness or megaly. GENITAL AND RECTAL: Acuña catheter in place. EXTREMITIES: Trace lower extremity edema. NEURO: The patient is alert and appropriate. IMPRESSION: 1. The patient will bleed in the bladder again, if we give therapeutic doses of anticoagulation, and we should not do this. However she is at a high risk of DVT and pulmonary emboli. This is because a PE has occurred before, because she has persistent cancer, and we will never eradicate it. A filter would decrease her risk of pulmonary emboli but increase the risk of DVT. The patient is pretty far along in the course of her primary peritoneal carcinoma, but she is not preterminal or end-stage. Therapies have not been totally exhausted. The cancers is in partial remission. 2. This is a tough call to make. There is no lapidary answer. The patient will have to be involved in the decision. 3. Incidental note is made of bacillus species, non anthracis, growing out PATIENT'S NAME: JOHN VILLALPANDO [facility] AGE: 81 Y [address] ROOM: [place] [address] LOCATION: [facility]U ADMIT DATE: 02/02/2017 Consultation DISCHARGE DATE: 02/05/2017 FAMILY PHYSICIAN: Rowdy Petty PA-C ATTENDING PHYSICIAN: RON FLORES of three blood cultures. The patient has an implanted Port. She believes the blood cultures were drawn peripherally. A second group of blood cultures was drawn on February 03 and there has been no growth to date. The patient is currently on parenteral vancomycin. If the patient has an infected port from the bacillus species, it can be difficult to maintain the port. RECOMMEND: DIAGNOSTIC: 1. BLood culture of the port at this point. TREATMENT: 1. Consider the placement of an inferior vena cava filter, versus followup and intervention if and when the patient develops DVT or pulmonary emboli. One could consider low-dose prophylactic anticoagulation doses, but there is no warrant for this in the literature that I am aware of. PATIENT EDUCATION: Made the point that, all things being equal, placement of an inferior vena cava filter is usually considered here. Recommended against reinstating therapeutic anticoagulation. I acknowledged we could forego placement of an inferior vena cava filter and intervene with placement of an inferior vena cava filter if and when she develops DVT. Pointed out she developed pulmonary emboli before and this complication can be life threatening. Acknowledged there is no established surveillance regimen to look for development of DVT in this situation. We would have to either forego a surveillance regimen or construct one on empiric grounds. Acknowledges that an inferior vena cava filter could increase the prospect of unpleasant deep venous thrombosis, though this is not inevitable. Recommended she weigh the pros and cons of each approach and make a decision as we need guidance at this point. MD ZUNILDA NAIK/georgel /[id number] CC: MD Marty Parks MD PATIENT'S NAME: JOHN VILLALPANDO [facility] AGE: 81 Y [address] ROOM: [place] [address] LOCATION: [facility]U ADMIT DATE: 02/02/2017 Consultation DISCHARGE DATE: 02/05/2017 FAMILY PHYSICIAN: Rowdy Petty PA-C ATTENDING PHYSICIAN: RON FLORES MD d: 02/05/17 1535 t: 02/05/17 1746, CONSULTATION REPORT
--- NOTE | ~2017-02-02 | DS ---
[facility] AGE[facility] 81 Y [address] ROOM: [place] [address] LOCATION: GPCU ADMIT DATE: 02/02/2017 Discharge Summary DISCHARGE DATE: 02/05/2017 FAMILY PHYSICIAN: Rowdy Petty PA-C ATTENDING PHYSICIAN: Mila Flores PRINCIPAL DIAGNOSES: 1. Hematuria. 2. Acute blood loss anemia. 3. Stage IV ovarian cancer. 4. Bacillus bacteremia. 5. History of deep vein thrombosis and pulmonary embolism. 6. Sacral insufficiency fracture. HOSPITAL COURSE: An 81-year-old lady with a history of ovarian cancer with peritoneal carcinomatosis undergoing palliative chemotherapy on long-term oral anticoagulation because of the pulmonary embolism in 2016 was admitted to the hospital for hematuria. This have been a recurrent problem. She was found to be in hemorrhagic shock initially. She was volume resuscitated with improvement in her hypertension. Her hemoglobin did dip around 6.5 and she got 3 units of blood transfusion in the course of the hospitalization. Urology was consulted and a cystoscopy was done with evacuation of 2 L of hematoma, but no identification of any source was done. We talked to Dr. Morales, Urology who suggested not to do any further anticoagulation on this patient; otherwise, she will continue to bleed. We also had Infectious Disease consultation because of the bacillus bacteremia, which was not anthrax. They recommended doing vancomycin and discharging home on levofloxacin. Heme/Onc was also consulted. It was brought up that the patient should undergo inferior vena cava filter. The patient and family had many questions of doing this inferior vena cava filter and the timeframe when it needs to be taken out. It was all explained to them and it was told that it is not going to improve her swelling in the legs if she does develop DVT. Two times long discussions were held in presence of palliative care. The patient at this point choses to be comfort care and not undergoing aggressive treatment. She will be discharged home on hospice with the hospice medication. I still suggested them to touch base with Dr. Aly if she does change her mind. ACTIVITY: As tolerated. DIET: Regular diet. DISCHARGE MEDICATIONS: We will address all the medication regarding pain before we send her home. PATIENT'S NAME: JOHN VILLALPANDO [facility] AGE: 81 Y [address] ROOM: [place] [address] [facility] AD[facility] DATE: 02/02/2017 Discharge Summary DISCHARGE DATE: 02/05/2017 FAMILY PHYSICIAN: Rowdy Petty PA-C ATTENDING PHYSICIAN: Mila Flores We spent 35 minutes in discharge planning of this patient. More than 50% of time was spent in direct counseling of the patient involving risk and benefits of inferior vena cava filter as well as being not on oral anticoagulation. All questions were answered and concerns addressed. MD CARLITOS ZAVALETA/oren /[id number] d: 02/06/17 0324 t: 02/07/17 1324, DISCHARGE SUMMARY
[~2017-02-02 08:27] MED LIST changes: +AYR SALINE NA14.1 GM NOSE; +COLACE100 MG; +COLACE100 MG PO; +COUMADIN **IA7.5 MG PO; +COUMADIN**IA 06/5 MG PO; +DILAUDID 4MG4 MG PO; +DURAGESIC 25MC25 MCG TOP; +DURAGESIC 75MC75 MCG TRANS; +DURAGESIC1 EAC1 TOP; +MAG119MX PO; +NORCO 5-325 TA1 EACH PO; +ZOFRAN ODT8 MG SL; +ZOFRAN4 MG SL
[2017-02-02 09:00] LABS: BASOPHIL # 0.1 K/uL (0.0-0.2); BASOPHIL % 0.4 %; EOSINOPHIL % 0.2 %; HEMOGLOBIN 9.8 g/dL (10.0-15.0); IMMATURE GRANULOCYTE # 0.2 K/uL (0.0-0.3); LYMPHOCYTE # 2.1 K/uL (0.8-4.0); LYMPHOCYTE % 11.3 %; MCH 30.6 pg (27.0-34.0); MCHC 30.6 gm/dL (32.0-36.5); MONOCYTE # 1.1 K/uL (0.0-1.0); MONOCYTE % 5.8 %; MPV 9.7 fl (9.4-12.4); NEUTROPHIL # (ANC) 15.2 K/uL (1.8-7.8); NEUTROPHIL % 81.3 %; NRBC % 0 /100WBC (0-0.00); PLATELET COUNT 451 K/uL (150-450); RDW-CV 17.7 % (11.9-14.6)
[2017-02-02 09:01] LABS: WBC 18.7 K/uL (4.0-11.0)
[2017-02-02 09:09] LABS: PTT 45 SECONDS (25-32)
[2017-02-02 09:10] LABS: INR - (THERAPEUTIC) 3.56 (0.92-1.07); PROTIME 37.9 SECONDS (9.8-11.4)
[2017-02-02 09:19] LABS: ALBUMIN 2.5 gm/dL (3.5-5.0); ALK PHOS 179 IU/L (33-138); ALT 27 IU/L (12-78); ANION GAP 18.7 (10.0-19.0); AST 38 IU/L (10-40); BLOOD UREA NITROGEN 18 mg/dL (6-24); CHLORIDE 104 mMol/L (96-110); CO2 22 mMol/L (22-32); CPK 23 IU/L (21-215); CREATININE 1.3 mg/dL (0.5-1.1); ESTIMATED GFR (MDRD EQUATION) 39; POTASSIUM 4.7 mMol/L (3.7-5.1); SODIUM 140 mMol/L (135-145); TOTAL BILIRUBIN 0.4 mg/dL (0.0-1.5); TOTAL PROTEIN 6.6 g/dL (6.0-8.4)
[2017-02-02 09:34] LABS: BICARBONATE 22.2 mmol/L (18.0-23.0); PCO2 35 mmHg (35-45)
[2017-02-02 09:36] LABS: PO2 43 mmHg (80-90)
[2017-02-02 09:42] LABS: LACTATE 4.7 mEq/L (0.50-1.60)
[2017-02-02 09:50] LABS: BILIRUBIN URINE NEGATIVE (NEGATIVE); BLOOD URINE 150 /UL (NEGATIVE); COLOR URINE RED (YELLOW); GLUCOSE URINE NEGATIVE (NEGATIVE); KETONE URINE NEGATIVE (NEGATIVE); LEUKOCYTES URINE NEGATIVE /UL (NEGATIVE); NITRITE URINE NEGATIVE (NEGATIVE); PROTEIN URINE 500 mg/dL (NEGATIVE); TURBIDITY URINE 4+ (CLEAR); UROBILINOGEN URINE NORMAL (NORMAL)
[2017-02-02 09:58] LABS: BACTERIA URINE NEGATIVE (NEGATIVE); EPITHELIAL URINE NEGATIVE #/HPF (NEGATIVE); RBC URINE FULL FIELD #/HPF (NEGATIVE); WBC URINE NEGATIVE #/HPF (NEGATIVE)
[2017-02-02] MEDS ORDERED: GLYCOLAX527 GM PO (14:56)
[2017-02-02] MEDS ORDERED: MIRALAX PO527 GM/BOT PO (14:57)
[2017-02-02] MEDS ORDERED: LIDOCAINE1 EACH TRANS (14:58)
[2017-02-02] MEDS ORDERED: DULCOLAX10 MG R (14:59)
[2017-02-02] MEDS ORDERED: DRISDOL 5050000 UNIT PO (14:59)
[2017-02-02] MEDS ORDERED: MILK OF MA400 MG/5 M PO (14:59)
[2017-02-02 22:08] LABS: HEMATOCRIT 19.9 % (30.0-46.0); HEMOGLOBIN 6.4 g/dL (10.0-15.0)
[2017-02-03 01:47] LABS: HEMATOCRIT 23.3 % (30.0-46.0); HEMOGLOBIN 7.6 g/dL (10.0-15.0)
[2017-02-03 05:53] LABS: PROTIME 13.9 SECONDS (9.8-11.4)
[2017-02-03 05:54] LABS: INR - (THERAPEUTIC) 1.32 (0.92-1.07)
[2017-02-03 05:59] LABS: ALBUMIN 2.2 gm/dL (3.5-5.0); ANION GAP 13.2 (10.0-19.0); BLOOD UREA NITROGEN 23 mg/dL (6-24); CHLORIDE 111 mMol/L (96-110); CO2 23 mMol/L (22-32); CREATININE 0.8 mg/dL (0.5-1.1); MAGNESIUM 1.8 mg/dL (1.8-2.6); PHOSPHORUS 2.2 mg/dL (2.5-4.9); POTASSIUM 4.2 mMol/L (3.7-5.1); SODIUM 143 mMol/L (135-145)
[2017-02-03 06:01] LABS: CALCIUM 6.3 mg/dL (8.5-10.5); ESTIMATED GFR (MDRD EQUATION) > 60
[2017-02-03 06:04] LABS: BASOPHIL % 0.1 %; EOSINOPHIL % 0.1 %; HEMATOCRIT 20.6 % (30.0-46.0); IMMATURE GRANULOCYTE # 0.2 K/uL (0.0-0.3); LYMPHOCYTE # 1.4 K/uL (0.8-4.0); LYMPHOCYTE % 7.4 %; MONOCYTE # 1.2 K/uL (0.0-1.0); MONOCYTE % 6.5 %; MPV 9.6 fl (9.4-12.4); NEUTROPHIL # (ANC) 15.6 K/uL (1.8-7.8); NEUTROPHIL % 84.9 %; NRBC % 0 /100WBC (0-0.00)
[2017-02-03 06:07] LABS: HEMOGLOBIN 6.8 g/dL (10.0-15.0); MCH 29.6 pg (27.0-34.0); MCV 89.6 fl (83.0-98.0); WBC 18.4 K/uL (4.0-11.0)
[2017-02-03 06:08] LABS: PLATELET COUNT 216 K/uL (150-450)
[2017-02-03 14:04] LABS: HEMATOCRIT 22.5 % (30.0-46.0); HEMOGLOBIN 7.6 g/dL (10.0-15.0)
[2017-02-03 22:39] LABS: HEMATOCRIT 21.5 % (30.0-46.0)
[2017-02-03 22:40] LABS: HEMOGLOBIN 7.3 g/dL (10.0-15.0)
[2017-02-04 03:42] LABS: ALBUMIN 2.2 gm/dL (3.5-5.0); ALK PHOS 109 IU/L (33-138); ALT 22 IU/L (12-78); ANION GAP 10.9 (10.0-19.0); AST 24 IU/L (10-40); BLOOD UREA NITROGEN 17 mg/dL (6-24); CALCIUM 6.8 mg/dL (8.5-10.5); CHLORIDE 111 mMol/L (96-110); CO2 24 mMol/L (22-32); CREATININE 0.7 mg/dL (0.5-1.1); ESTIMATED GFR (MDRD EQUATION) > 60; POTASSIUM 3.9 mMol/L (3.7-5.1); SODIUM 142 mMol/L (135-145); TOTAL BILIRUBIN 0.5 mg/dL (0.0-1.5); TOTAL PROTEIN 5.2 g/dL (6.0-8.4)
[2017-02-04 03:44] LABS: BASOPHIL % 0.2 %; EOSINOPHIL # 0.1 K/uL (0.0-0.5); EOSINOPHIL % 0.4 %; HEMATOCRIT 22.4 % (30.0-46.0); IMMATURE GRANULOCYTE # 0.3 K/uL (0.0-0.3); IMMATURE GRANULOCYTE % 1.4 %; LYMPHOCYTE # 1.4 K/uL (0.8-4.0); MCH 29.3 pg (27.0-34.0); MCHC 33.5 gm/dL (32.0-36.5); MCV 87.5 fl (83.0-98.0); MONOCYTE # 1.2 K/uL (0.0-1.0); MONOCYTE % 6.7 %; MPV 9.8 fl (9.4-12.4); NEUTROPHIL # (ANC) 15.1 K/uL (1.8-7.8); NEUTROPHIL % 83.3 %; NRBC % 0 /100WBC (0-0.00); PLATELET COUNT 211 K/uL (150-450); RBC 2.56 M/uL (3.00-5.00); RDW-CV 19.3 % (11.9-14.6)
[2017-02-04 03:55] LABS: HEMOGLOBIN 7.5 g/dL (10.0-15.0); WBC 18.1 K/uL (4.0-11.0)
[2017-02-04 15:58] LABS: HEMOGLOBIN 7.2 g/dL (10.0-15.0)
[2017-02-04 21:58] LABS: HEMATOCRIT 20.8 % (30.0-46.0); HEMOGLOBIN 6.8 g/dL (10.0-15.0)
[2017-02-05 05:31] LABS: CREATININE 0.5 mg/dL (0.5-1.1); ESTIMATED GFR (MDRD EQUATION) > 60
[2017-02-05 05:32] LABS: HEMATOCRIT 22.6 % (30.0-46.0); HEMOGLOBIN 7.6 g/dL (10.0-15.0)
[2017-02-05 11:08] LABS: BILIRUBIN URINE NEGATIVE (NEGATIVE); BLOOD URINE 250 /UL (NEGATIVE); COLOR URINE YELLOW (YELLOW); GLUCOSE URINE NEGATIVE (NEGATIVE); KETONE URINE NEGATIVE (NEGATIVE); LEUKOCYTES URINE 500 /UL (NEGATIVE); NITRITE URINE NEGATIVE (NEGATIVE); PROTEIN URINE 100 mg/dL (NEGATIVE); SPEC GRAVITY URINE 1.015 (1.003-1.035); TURBIDITY URINE 1+ (CLEAR); UROBILINOGEN URINE NORMAL (NORMAL)
[2017-02-05 11:18] LABS: RBC URINE 20-50 #/HPF (NEGATIVE)
[2017-02-05 11:19] LABS: BACTERIA URINE RARE (NEGATIVE); EPITHELIAL URINE RARE #/HPF (NEGATIVE)
== END 2017-02-05 14:35 | disposition hospice, inpatient (51) | DRG 695 ==
LOC: GMED 08:27 → GPCU 12:05
PROVIDERS: Emergency Medicine; Internal Medicine; ADMIT Internal Medicine
PROC: 30233K1 Transfusion of Nonautologous Frozen Plasma into Peripheral Vein, Percutaneous Approach (ICD-10-PCS; 2017-02-02)
PROC: 30233N1 Transfusion of Nonautologous Red Blood Cells into Peripheral Vein, Percutaneous Approach (ICD-10-PCS; 2017-02-02)
PROC: 30233N1 Transfusion of Nonautologous Red Blood Cells into Peripheral Vein, Percutaneous Approach (ICD-10-PCS; 2017-02-03)
PROC: BT00ZZZ Plain Radiography of Bladder (ICD-10-PCS; principal; 2017-02-04)
PROC: 0TCB8ZZ Extirpation of Matter from Bladder, Via Natural or Artificial Opening Endoscopic (ICD-10-PCS; principal; 2017-02-04)
PROC: 0T9B80Z Drainage of Bladder with Drainage Device, Via Natural or Artificial Opening Endoscopic (ICD-10-PCS; 2017-02-04)
PROC: 30233N1 Transfusion of Nonautologous Red Blood Cells into Peripheral Vein, Percutaneous Approach (ICD-10-PCS; 2017-02-04)
DX: R31.0 Gross hematuria (principal); R57.1 Hypovolemic shock; N17.9 Acute kidney failure, unspecified; C78.6 Secondary malignant neoplasm of retroperitoneum and peritoneum; M80.08XA Age-related osteoporosis with current pathological fracture, vertebra(e), initial encounter for fracture; I95.9 Hypotension, unspecified; C56.9 Malignant neoplasm of unspecified ovary; D62 Acute posthemorrhagic anemia; I10 Essential (primary) hypertension; Z51.5 Encounter for palliative care; Z66 Do not resuscitate; Z86.718 Personal history of other venous thrombosis and embolism; Z86.711 Personal history of pulmonary embolism; Z79.01 Long term (current) use of anticoagulants; A49.9 Bacterial infection, unspecified; R79.1 Abnormal coagulation profile; Z92.21 Personal history of antineoplastic chemotherapy; R33.9 Retention of urine, unspecified; Z79.899 Other long term (current) drug therapy; Z87.440 Personal history of urinary (tract) infections; N32.89 Other specified disorders of bladder; Z82.49 Family history of ischemic heart disease and other diseases of the circulatory system; Z85.828 Personal history of other malignant neoplasm of skin; R00.0 Tachycardia, unspecified
CPT/HCPCS: J1170; J1642; J1956; J2020; J2543; J3010; J3370; J7030; J7050; J7120; P9017; P9040; Q9967